=== PATIENT | male | born 1985 | race Caucasian/White ===

== ENCOUNTER 2019-03-29 08:50 | Outpatient (REF) | payer BC, SELFPAY ==
[2019-03-29 12:36] LABS: HCT 45.4 % (40.0-50.0); HGB 15.7 g/dL (13.5-17.5); Mean Corp. HGB Concentration 34.6 g/dL (32.0-36.0); Mean Corpuscular Volume 92.7 fL (80-95); Mean Platelet Volume 11.1 fL (8.0-11.0); Platelet Count 175 x1000/uL (130-400); RBC Distribution Width 12.3 % (11.8-14.1); White Blood Cell Count 3.71 k/cumm (4.4-10.8)
[2019-03-29 12:50] LABS: ALT 36 U/L (16-63); AST 20 U/L (15-37); Albumin 4.2 g/dL (3.4-5.0); Alkaline Phosphatase 59 U/L (46-116); Anion Gap 9.9 mmol/L (3-11); BUN 17 mg/dL (7-18); Bilirubin, Total 1.1 mg/dL (0.2-1.0); CO2 28.1 mmol/L (21.0-32.0); CREATININE 1.18 mg/dL (0.70-1.30); Calcium 9.1 mg/dL (8.5-10.1); Chloride 106 mmol/L (98-107); Glucose 102 mg/dL (70-100); Potassium 4.4 mmol/L (3.5-5.1); Sodium 144 mmol/L (136-145); Total Protein 7.3 g/dL (6.4-8.2)
[2019-04-01 11:33] LABS: Hepatitis B Surface Ag Negative (NEGAT)
[2019-04-01 11:39] LABS: HBs Antibody, Quant 175.2 mIU/mL; Hepatitis B Surface Ab Positive
[2019-04-01 11:55] LABS: Hep A Total Ab w Rflx IgM Negative (NEGAT)
[2019-04-01 12:00] LABS: Hepatitis C Ab w Rflx HCV PCR Negative (NEGAT)
== END 2019-03-29 09:10 ==
LOC: NCHCN 08:50
PROVIDERS: Visit Provider Nurse Practitioner Family
DX: R10.11 Right upper quadrant pain (principal); Z11.59 Encounter for screening for other viral diseases
CPT/HCPCS: 80053; 85027; 86706; 86709; 86803; 87340

== ENCOUNTER 2019-04-08 01:50 | Outpatient (CLI) | payer BC, SELFPAY ==
--- NOTE | 2019-04-08 07:00 | DI.US_ITS ---
EXAM: US ABDOMEN CLINICAL HISTORY: RUQ ABD PAIN, R10.11,RUQ ABD MASS, R19.01 TECHNIQUE: Ultrasound performed using standard protocol. FINDINGS: The aorta is unremarkable as visualized. The inferior vena cava is unremarkable as visualized. The l iver is normal in size. No hepatic mass is seen. There is hepatopetal flow through the portal vein. No gallstones are present. There is no sludge or pericholecystic fluid. The gallbladder wall is a t the upper limits of normal in size. There is a negative sonographic Luis's sign. Common duct is within normal limits at 2.7 mm. The pancreas, spleen, and kidneys are unremarkable. No free fluid is seen in the upper abdomen. IMPRESSION: Upper limits of normal gallbladder wall thickness. Otherwise negative examination.
== END 2019-04-08 02:10 ==
PROVIDERS: PCP Nurse Practitioner Family; Visit Provider Nurse Practitioner Family
DX: R10.11 Right upper quadrant pain (principal); R19.01 Right upper quadrant abdominal swelling, mass and lump; K82.8 Other specified diseases of gallbladder
CPT/HCPCS: 76700

== ENCOUNTER 2020-09-07 11:03 | Outpatient (CLI) | payer MEDICAID, SELFPAY ==
--- NOTE | 2020-09-07 10:10 | DI.RAD_ITS ---
EXAM: XR FOOT LT COMPLETE CLINICAL HISTORY: LT ANKLE JOINT PAIN, M25.572. TECHNIQUE: 2D digital imaging was performed. COMPARISON: No exams were available for comparison FINDINGS: There is no evidence of fracture nor diastasis of the Lisfranc joint. Benign-appearing sclerotic den sity is noted in the lateral aspect of the proximal phalanx of the great toe. Mild hallux valgus. D orsal talar beak. No inferior calcaneal spur. IMPRESSION: DATA REPOSITORY: RADIATION DOSE DELIVERED:
--- NOTE | 2020-09-07 10:10 | DI.RAD_ITS ---
EXAM: XR ANKLE LT COMPLETE CLINICAL HISTORY: LT ANKLE JOINT PAIN, M25.572. TECHNIQUE: 2D digital imaging was performed. COMPARISON: CR LEFT ANKLE COMPLETE from 02/23/2017 FINDINGS: There is mild soft tissue swelling laterally. There is no evidence of fracture or widening of the mo rtise. Talar dome appears unremarkable. Dorsal talar beak is noted which is probably the attachment site of the anterior capsule of the ankle joint no evidence of tarsal coalition. Benign bone island is noted in the tibial plafond, unchanged. IMPRESSION: No ankle fracture evident. No significant change from 2017. DATA REPOSITORY: RADIATION DOSE DELIVERED:
== END 2020-09-07 11:23 ==
PROVIDERS: PCP Nurse Practitioner Family; Visit Provider Acupuncturist
DX: M25.572 Pain in left ankle and joints of left foot (principal); M20.12 Hallux valgus (acquired), left foot; M79.89 Other specified soft tissue disorders
CPT/HCPCS: 73610; 73630

== ENCOUNTER 2020-09-13 09:09 | Emergency (ER) | payer MEDICAID, SELFPAY ==
[2020-09-13 09:14] VITALS: BP 158/84; PULSE 84; RESP 16; TEMP 37.1; O2SAT 100
--- NOTE | 2020-09-13 09:23 | ED.GENADUL_ITS ---
Discharge Plan Disposition Patient Disposition: HOME Condition: Good Discharge Details Clinical Impression: Gout, Abnormal transaminases Primary Care Provider: Gideon Montes ED Provider: Miriam Fernandez Home Meds and New Rx's Prescriptions: New prednisone 10 mg tablet 10 mg PO DAILY Qty: 16 RF: 0 Continued Ibuprofen [Ibuprofen Ib] 200 MG Tablet 800 mg PO PRN PRNRF: 0 Discharge Instructions Instructions: Prednisone (By mouth), Gout (ED) Additional Instructions: Your history, exam and labs are most patient with gout flare. Encouragement water intake. Please try to avoid alcohol no red in the fatty foods. Attached is information on gout and prevention of gout. You have elevated liver enzymes, is likely associated with alcohol intake. You need to have these rechecked by your primary care. Please call Monday to schedule follow-up appointment with your primary care in the next 1 to 2 weeks. If you develop spreading redness, increased pain, fever/chills or other new/worsening symptoms to seek care urgently once again. Referrals: Gideon Montes, CERTIFIED VEHICLE FIRE INVESTIGATOR [Primary Care Provider] - Discharge Data Discharge Date/Time-TO BE ENTERED AT DEPARTURE: 09/13/20 10:44 Medical Decision Making Patient is a pleasant 35-year-old gentleman presenting today with chief complaint of left ankle pain. Patient reports that he has had difficulty with flares of ankle pain for the past several years. Reports that this flare began approximately 8 days ago. Reports he was seen in urgent care at which time he was diagnosed with ankle sprain. Patient did undergo imaging of the ankle foot which was unchanged from previous in 2017. Patient denies any recent trauma. Denies any fevers or chills. States the pain is initially quite severe in the foot but his radiated more proximally and is now mainly in the ankle. The pain is not keeping him awake at night. He has been using Tylenol ibuprofen. Has been using crutches for the past week. Has been resting, icing, elevating. On exam, patient appears nontoxic. His vital signs are stable. He is noted to be hypertensive with blood pressure 158/84. I will have him discuss this further with primary care. Exam the left lower extremity is significant for swelling fairly diffusely about the ankle and into the proximal foot. The ankle is warm. Not hot. Mild pinkness, particular on the medial aspect of the ankle. No break in the skin. This is not spread elsewhere. He has 2+ distal pulses. Brisk capillary refill. Sensation is intact. The patient is a has atraumatic onset of this discomfort, I find it less likely to be sprain. More likely, this could be gout. Patient is a laureen, potential Lyme disease. Does not appear septic at this point. Patient does have ability to move the ankle. I do not suspect an infected joint at this time. Plan for baseline labs. Discussed this plan with the patient who is in agreement. Labs reviewed. Normal white count. Uric acid is elevated at 7.6. BMP significant for transaminitis. AST 39, ALT 84, alk phos 159. Patient does report drinking alcohol regularly, Likely contributing to presumed gout flare as well as the transaminitis. Discussed his findings with the patient. He will continue to elevate, use compression. We will continue with crutches to help with discomfort. We will begin the patient on prednisone. Patient states NSAIDs classically upset his stomach. Patient will be placed on a prednisone taper. Strict return precautions were discussed. Advise follow-up with primary care for reevaluation in 1 week. All his questions and concerns were addressed and he is in agreement this plan. Patient I also discussed dietary changes for about the transaminitis as well as gout. HPI General Mode of arrival: ambulatory (crutches) . Date/Time Provider Initiated Documentation: 09/13/20 09:10 . Limitations to Documentation: no limitations . Information obtained by: patient and RN notes reviewed . History of Present Illness 35 year old M presents to the emergency department with the chief c omplaint of left foot/ankle pain, described as moderate, with intensity rated at 6. Quality is described as aching, and is localized to the left and lower extremity. Patient started experiencing this day(s) (8) and it has been constant. Immobilization improves symptom(s), Movement worsens symptoms . Patient notes no other symptoms.; denies fever/chills, nausea/vomiting and rash. Patient did receive the following treatments prior to arrival, NSAID Related Data Home Medications Medication Instructions Recorded Confirmed Ibuprofen [Ibuprofen Ib] 800 mg PO PRN PRN 02/23/17 09/13/20 prednisone 10 mg PO DAILY #16 tab 09/13/20 Previous Rx's Medication Instructions Recorded prednisone 10 mg PO DAILY #16 tab 09/13/20 Allergies Allergy/AdvReac Type Severity Reaction Status Date / Time No Known Allergies Allergy Unverified 09/13/20 09:22 General Stated Complaint: Orthopedic TITA: 4 Review of Systems Constitutional Constitutional: Reports as per HPI, Denies chills, Denies fever(s), Denies headache(s) and Denies weakness ENT Ears, Nose, Mouth, and Throat: Denies headache(s) Cardiovascular Cardiovascular: Reports as per HPI Respiratory Respiratory: Reports as per HPI and Denies cough Musculoskeletal Musculoskeletal: Reports as per HPI and Denies tingling Integumentary/Breasts Skin/Breast: Reports as per HPI, Denies rash and Denies wounds Neurologic Neurologic: Reports as per HPI, Denies headache(s), Denies tingling, Denies paresthesias and Denies weakness [facility] Social History Smoking risk assessment performed?: No Alcohol Intake: current Alcohol Intake frequency: 0-2 drinks per day Drug use: Never Do you feel safe at home: Yes Do you feel safe in your relationship?: Yes Exam Const General: cooperative, healthy appearing, comfortable, no acute distress, well developed and well groomed Nutritional Appearance: average body habitus and well nourished Orientation: alert and awake Resp Effort & Inspection: normal respiratory effort, able to speak in complete sentences and no respiratory distress Cardio Rate: regular rate Rhythm: regular rhythm Skin General skin exam: erythema (ankle, particularly medially, is pink ) Neuro General: patient alert and patient awake Cognition: normal cognition Speech: speech normal Gait: gait abnormal (ambulating with crutches) Motor: muscle tone normal throughout Sensory Exam: no sensory deficits noted Extrem Left lower extremity: normal capillary refill, knee Details: normal to inspection, lower leg Details: normal to inspection, ankle Details: tenderness (diffuse pain), swelling Details: diffusely and warmth Location: anteriorly, laterally and medially; not posteriorly; ROM abnormal (limited with both plantar flexion and dorsiflexion) and foot Details: normal capillary refill, toes with normal ROM, vascular exam Details: dorsalis pedis pulse present, posterior tibial pulse present and normal capillary refill and motor-sensory exam Details: light-touch normal; no tenderness, no unusual warmth, no ecchymosis, no crepitus and no puncture wound Psych Appearance: grossly normal and well kempt Mental Status: mental status grossly normal Speech and Movement: speech and movement normal Course Vital Signs Vital signs: Vital Signs Temperature 37.1 C 09/13/20 09:14 Pulse 84 09/13/20 09:14 Respiratory Rate 16 09/13/20 09:14 Blood Pressure 158/84 H 09/13/20 09:14 Pulse Oximetry 100 09/13/20 09:14 Temperature 37.1 C 09/13/20 09:14 Temperature Source Temporal Artery Scan 09/13/20 09:14 Pulse 84 09/13/20 09:14 Respiratory Rate 16 09/13/20 09:14 Respiratory Effort Non-Labored 09/13/20 09:20 Blood Pressure 158/84 H 09/13/20 09:14 Blood Pressure Position Sitting 09/13/20 09:14 Pulse Oximetry 100 09/13/20 09:14 Oxygen Delivery Method Room Air 09/13/20 09:14 Oxygen Flow Rate 0 09/13/20 09:14 Pain Level 6 09/13/20 09:14
[2020-09-13 10:03] LABS: Abs Immature Grans 0.02 10^3/uL (0.0-0.06); Absolute Basophil Count 0.02 10^3/uL (0.0-0.2); Absolute Eosinophil Count 0.12 10^3/uL (0.0-0.7); Absolute Lymphocyte Count 1.29 10^3/uL (1.2-3.4); Absolute Monocyte Count 0.75 10^3/uL (0.1-0.8); Absolute Neutrophil Count 4.39 10^3/uL (1.2-6.7); Basophils % 0.3; Eosinophils % 1.8; HCT 39.8 % (40.0-50.0); HGB 13.5 g/dL (13.5-17.5); Immature Grans % 0.3; Lymphocytes % 19.6; MCH 31.5 pg (27.0-33.0); MCHC 33.9 % (32.0-36.0); MCV 92.8 fL (80-95); MPV 9.7 fL (8.0-11.0); Monocytes % 11.4; Neutrophils % 66.6; Nucleated RBC 0 %; Platelet Count 224 10^3/uL (130-400); RBC 4.29 10^6/uL (4.36-5.78); RDW 11.7 % (11.8-14.1); RDW-SD 39.6 fL; WBC 6.59 10^3/uL (4.4-10.8)
[2020-09-13 10:11] LABS: ALT 84 U/L (16-63); AST 39 U/L (15-37); Albumin 3.4 g/dL (3.4-5.0); Alkaline Phosphatase 159 U/L (46-116); Anion Gap 5.7 mmol/L (3-11); BUN 12 mg/dL (7-18); Bilirubin, Total 0.8 mg/dL (0.2-1.0); CO2 29.3 mmol/L (21.0-32.0); CREATININE 1.1 mg/dL (0.70-1.30); Calcium 8.7 mg/dL (8.5-10.1); Chloride 104 mmol/L (98-107); Glucose 98 mg/dL (74-106); Potassium 4.2 mmol/L (3.5-5.1); Sodium 139 mmol/L (136-145); Total Protein 7.5 g/dL (6.4-8.2); Uric Acid 7.6 mg/dL (3.5-7.2)
[2020-09-13] MEDS: predniSONE 20 MG TAB 40 MG PO (10:37)
[2020-09-14 11:54] LABS: Lyme Ab w Rflx to Lyme Confirm Negative (Negative)
[2020-09-15 06:01] LABS: Anaplasma phagocytophilum Negative (Negative); B. miyamotoi PCR Negative (Negative); Babesia divergens/MO-1 Negative (Negative); Babesia duncani Negative (Negative); Babesia microti Negative (Negative); Ehrlichia chaffeensis Negative (Negative); Ehrlichia ewingii/canis Negative (Negative); Ehrlichia muris eauclairensis Negative (Negative)
== END 2020-09-13 10:44 | disposition home or self-care (01) ==
PROVIDERS: Emergency Provider Physician Assistant; PCP Nurse Practitioner Family
DX: M10.072 Idiopathic gout, left ankle and foot (principal)
CPT/HCPCS: 36415; 80053; 87798; 99283; 84550; 85025; 86618; J7512

== ENCOUNTER 2020-09-18 15:11 | Outpatient (REF) | payer MEDICAID, SELFPAY ==
[2020-09-18 16:00] LABS: ESR 38 mm//hr (0-15)
[2020-09-18 16:06] LABS: C-Reactive Protein 1.71 mg/dL (0.0-0.3)
[2020-09-21 08:47] LABS: Cyclic Citrullinated Peptide <2.5 U/mL (<5.0)
[2020-09-21 14:54] LABS: ANA Interpretation Negative (Negative)
[2020-09-21 15:04] LABS: IgA 254 mg/dL (85-499); Interpretation (See Note); Tissue Transglutaminase IgA <1.2 U/mL (<4.0)
[2020-09-21 16:21] LABS: HLA-B27 Result Negative
== END 2020-09-18 15:12 | disposition home or self-care (01) ==
LOC: NCHCN 15:11
PROVIDERS: PCP Nurse Practitioner Family; Visit Provider Family Medicine
DX: M25.562 Pain in left knee (principal); M25.572 Pain in left ankle and joints of left foot
CPT/HCPCS: 82784; 83516; 85652; 86200; 86812; 86038; 86140

== ENCOUNTER 2021-04-09 09:30 | Outpatient (REF) | payer MEDICAID, SELFPAY ==
[2021-04-09 14:30] LABS: ALT 45 U/L (16-63); AST 26 U/L (15-37); Albumin 4.1 g/dL (3.4-5.0); Alkaline Phosphatase 67 U/L (46-116); Anion Gap 6.1 mmol/L (3-11); BUN 14 mg/dL (7-18); Bilirubin, Total 0.8 mg/dL (0.2-1.0); CO2 29.9 mmol/L (21.0-32.0); CREATININE 1.1 mg/dL (0.70-1.30); Calculated LDL 111 mg/dL (<100); Chloride 106 mmol/L (98-107); Cholesterol 176 mg/dL (<200); Glucose 99 mg/dL (74-106); HDL Cholesterol 49 mg/dL (40-60); Potassium 4.5 mmol/L (3.5-5.1); Sodium 142 mmol/L (136-145); Total Protein 7.1 g/dL (6.4-8.2); Triglyceride 84 mg/dL (<150)
== END 2021-04-09 09:31 | disposition home or self-care (01) ==
LOC: NCHCN 09:30
PROVIDERS: PCP Nurse Practitioner Family; Visit Provider Physician Assistant
DX: R79.89 Other specified abnormal findings of blood chemistry (principal); Z00.00 Encounter for general adult medical examination without abnormal findings
CPT/HCPCS: 80053; 80061

== ENCOUNTER 2021-11-05 16:00 | Outpatient (REF) | payer BC, MEDICAID, SELFPAY ==
[2021-11-05 15:30] LABS: Abs Immature Grans 0.02 10^3/uL (0.0-0.06); Absolute Basophil Count 0.03 10^3/uL (0.0-0.2); Absolute Eosinophil Count 0.18 10^3/uL (0.0-0.7); Absolute Lymphocyte Count 1.25 10^3/uL (1.2-3.4); Absolute Monocyte Count 0.56 10^3/uL (0.1-0.8); Absolute Neutrophil Count 3.97 10^3/uL (1.2-6.7); Basophils % 0.5; HCT 45.3 % (40.0-50.0); HGB 14.6 g/dL (13.5-17.5); Immature Grans % 0.3; Lymphocytes % 20.8; MCH 30.4 pg (27.0-33.0); MCHC 32.2 % (32.0-36.0); MCV 94 fL (80-95); MPV 11.1 fL (8.0-11.0); Monocytes % 9.3; Neutrophils % 66.1; Platelet Count 241 10^3/uL (130-400); RDW 11.8 % (11.8-14.1); RDW-SD 41.3 fL; WBC 6.01 10^3/uL (4.4-10.8)
[2021-11-05 15:33] LABS: ESR 20 mm/hr (0-15)
[2021-11-05 16:31] LABS: ALT 78 U/L (16-63); AST 35 U/L (15-37); Alkaline Phosphatase 119 U/L (46-116); Anion Gap 10.3 mmol/L (3-11); BUN 10 mg/dL (7-18); Bilirubin, Total 0.9 mg/dL (0.2-1.0); C-Reactive Protein 4.82 mg/dL (0.0-0.3); CO2 29.7 mmol/L (21.0-32.0); CREATININE 1.2 mg/dL (0.70-1.30); Calcium 9.6 mg/dL (8.5-10.1); Chloride 105 mmol/L (98-107); Glucose 98 mg/dL (74-106); Potassium 4.3 mmol/L (3.5-5.1); Sodium 145 mmol/L (136-145); Total Protein 7.6 g/dL (6.4-8.2)
[2021-11-05 21:55] LABS: Rheumatoid Factor <8.6 IU/mL (<12.0)
[2021-11-08 00:47] LABS: Anaplasma phagocytophilum Negative (Negative); B. miyamotoi PCR Negative (Negative); Babesia divergens/MO-1 Negative (Negative); Babesia duncani Negative (Negative); Babesia microti Negative (Negative); Ehrlichia chaffeensis Negative (Negative); Ehrlichia ewingii/canis Negative (Negative); Ehrlichia muris eauclairensis Negative (Negative)
[2021-11-08 10:31] LABS: Lyme Ab w Rflx to Lyme Confirm Negative (Negative)
[2021-11-09 14:27] LABS: ANA Interpretation Negative (Negative)
[2021-11-10 10:26] LABS: Syphilis Serology (RPR) Negative (Negative)
== END 2021-11-05 16:01 | disposition home or self-care (01) ==
LOC: LBN 16:00
PROVIDERS: PCP Nurse Practitioner Family; Visit Provider Nurse Practitioner Family
DX: M13.88 Other specified arthritis, other site (principal); R79.89 Other specified abnormal findings of blood chemistry
CPT/HCPCS: 80053; 85652; 87798; 84443; 85025; 86038; 86140; 86431; 86592; 86618

== ENCOUNTER 2023-09-25 15:24 | Outpatient (CLI) | payer MEDICAID, SELFPAY ==
--- NOTE | 2023-09-25 08:15 | DI.RAD_ITS ---
Exam(s) XR KNEE LT 4V AP,LAT,LARISA,PAT EXAM: XR KNEE LT 4V AP,LAT,LARISA,PAT CLINICAL HISTORY: left knee pain. TECHNIQUE: 2D digital imaging was performed of the left knee. Four images were obtained. Merchant, AP, lateral and PA tunnel views were obtained. COMPARISON: No exams were available for comparison FINDINGS: BONES: No acute fracture is present. No bony destructive lesion is seen. JOINTS: The knee is normally aligned. There is a small joint effusion. No loose body. SOFT TISSUE: Normal. IMPRESSION: Small joint effusion. DATA REPOSITORY: RADIATION DOSE DELIVERED:
== END 2023-09-25 15:25 | disposition home or self-care (01) ==
LOC: DIORS 15:24
PROVIDERS: PCP Physician Assistant; Visit Provider Student in an Organized Health Care Education/Training Program
DX: M25.562 Pain in left knee (principal)
CPT/HCPCS: 73564

== ENCOUNTER → 2023-10-10 02:28 | Outpatient (CLI) | payer MEDICAID, SELFPAY ==
--- NOTE | 2023-10-10 07:15 | DI.MRI_ITS ---
Exam(s) MR LOWER JOINT LT WO EXAM: MR LOWER JOINT LT WO CLINICAL HISTORY: lt knee pain, tear medial meniscus lt knee,s83.242a. TECHNIQUE: Multiplanar multisequence MRI was performed. COMPARISON: CR XR KNEE LT 4V AP,LAT,LARISA,PAT from 09/25/2023 FINDINGS: BONES: There is no fracture or contusion pattern. JOINTS: A moderate-sized joint effusion is present. Articular cartilage: Patellofemoral joint: Articular cartilage is unremarkable. Medial femoral tibial joint: Articular cartilage is unremarkable. Lateral femoral tibial joint: Articular cartilage is unremarkable. TENDONS: Extensor mechanism: Unremarkable. Medial retinaculum: Unremarkable. Lateral retinaculum: Unremarkable. Popliteus: Unremarkable. MUSCLES: Unremarkable. MENISCI: The medial meniscus is unremarkable. The lateral meniscus is unremarkable. SOFT TISSUES: Small Ventura's cyst. LIGAMENTS: Anterior Cruciate: Unremarkable. Posterior Cruciate: Unremarkable. Medial Collateral:Unremarkable. Lateral Collateral: Unremarkable. IMPRESSION: Joint effusion and small Ventura cyst. No evidence of meniscal tear or ligament tear. DATA REPOSITORY:
== END ==
PROVIDERS: PCP Physician Assistant; Visit Provider Student in an Organized Health Care Education/Training Program
DX: M25.462 Effusion, left knee (principal)
CPT/HCPCS: 73721

== ENCOUNTER → 2023-11-10 11:55 | Outpatient (CLI) | payer MEDICAID, SELFPAY ==
--- NOTE | 2023-11-10 12:16 | DI.RAD_ITS ---
Exam(s) XR HAND RT COMPLETE EXAM: XR HAND RT COMPLETE CLINICAL HISTORY: LOCALIZED SWELLING FINGER RT HAND, R22.31, ? TROPHACEOUS GOUT. TECHNIQUE: 2D digital imaging was performed. Three views. COMPARISON: No exams were available for comparison FINDINGS: BONES: No acute fracture is present. No bony destructive lesion is seen. JOINTS: No dislocation present. No significant degenerative changes. SOFT TISSUE: Swelling around distal interphalangeal joint of the index and middle fingers. No foreig n body or abnormal gas collection. No soft tissue calcifications. IMPRESSION: Soft tissue swelling DIP joints of index and middle fingers. DATA REPOSITORY: RADIATION DOSE DELIVERED:
== END ==
PROVIDERS: PCP Physician Assistant; Visit Provider Physician Assistant Medical
DX: R22.31 Localized swelling, mass and lump, right upper limb (principal)
CPT/HCPCS: 73130

== ENCOUNTER 2023-11-10 12:32 | Outpatient (REF) | payer MEDICAID, SELFPAY ==
[2023-11-10 14:28] LABS: Abs Immature Grans 0.01 10^3/uL (0.0-0.06); Absolute Basophil Count 0.04 10^3/uL (0.0-0.2); Absolute Eosinophil Count 0.17 10^3/uL (0.0-0.7); Absolute Lymphocyte Count 1.38 10^3/uL (1.2-3.4); Absolute Monocyte Count 0.65 10^3/uL (0.1-0.8); Absolute Neutrophil Count 4.95 10^3/uL (1.2-6.7); Basophils % 0.6 %; Eosinophils % 2.4 %; HGB 15.1 g/dL (13.5-17.5); Immature Grans % 0.1 %; Lymphocytes % 19.2 %; MCH 31.7 pg (27.0-33.0); MCHC 34.3 % (32.0-36.0); MCV 92 fL (80-95); MPV 11.2 fL (8.0-11.0); Neutrophils % 68.7 %; Platelet Count 201 10^3/uL (130-400); RBC 4.76 10^6/uL (4.36-5.78); RDW-SD 41.1 fL
[2023-11-10 14:51] LABS: ALT 59 U/L (16-63); AST 34 U/L (15-37); Albumin 4.1 g/dL (3.4-5.0); Alkaline Phosphatase 87 U/L (46-116); Anion Gap 8.3 mmol/L (3-11); BUN 13 mg/dL (7-18); Bilirubin, Total 0.9 mg/dL (0.2-1.0); CO2 29.7 mmol/L (21.0-32.0); Calcium 9.2 mg/dL (8.5-10.1); Chloride 106 mmol/L (98-107); Glucose 99 mg/dL (74-106); Potassium 4.4 mmol/L (3.5-5.1); Sodium 144 mmol/L (136-145); Total Protein 7.3 g/dL (6.4-8.2); Uric Acid 10.7 mg/dL (3.5-7.2)
== END 2023-11-10 12:33 | disposition home or self-care (01) ==
LOC: LBN 12:32
PROVIDERS: PCP Physician Assistant; Visit Provider Physician Assistant Medical
DX: R22.31 Localized swelling, mass and lump, right upper limb (principal)
CPT/HCPCS: 80053; 84550; 85025

== ENCOUNTER 2025-05-06 08:37 | Emergency (ER) | payer SELFPAY ==
[2025-05-06] VITALS (14 sets, daily range): BP systolic 136–207; BP diastolic 85–107; PULSE 26–66; RESP 14–30; O2SAT 90–100
--- NOTE | 2025-05-06 08:30 | RT.EKG_ITS ---
APPROVED REPORT Exam: Resting ECG Reason for Exam: Chest Pain Patient Location: E HR:57 bpm ECG Measurements Heart Rate 57 AXIS DE 60 P -24 QRSd 86 QRS 80 QT 415 T 76 QTc 409 Conclusion Sinus bradycardia...rate< 60 Atrial premature complex...SV complex w/ short R-R interval Abnrm T, consider ischemia, anterolateral lds...T <-0.20mV, I aVL V2-V6 ST elev, probable normal early repol pattern...ST elevation, age<55 Hyperacute T waves in septal leads No STEMI
--- NOTE | 2025-05-06 08:51 | ED.GENADUL_ITS ---
Discharge Plan Disposition Patient Disposition: Transfer-Acute Inpatient Care Specific Acute Inpt Facility: [facility] Discharge Details Clinical Impression: Chest pain Primary Care Provider: Mc Araujo ED Provider: Jaspal Hsu Home Meds and New Rx's Prescriptions: No Action ketoconazole 2 % shampoo 1 applic topical ONCE Ibuprofen [Ibuprofen Ib] 200 MG tablet 800 mg PO PRN PRN HPI General Date/Time Provider Initiated Documentation: 05/06/25 08:46 . HPI Narrative: MDM/Narrative: 40-year-old male with no known significant past medical history, presents for evaluation of acute left-sided chest pain radiating to left arm, and jaw ap proximately 45 minutes ago, unable to describe the characteristic but describes it as severe in intensity. Also notes associated nausea and diaphoresis. Denies any known family history of early onset stroke or heart attack, denies any other new or concerning symptoms. EKG notable for hyperacute T waves, no other criteria to meet STEMI noted on EKG, however given patient's classic presentation will treat with 324 mg of aspirin, nitroglycerin and serial EKGs due to high concern for ACS. Will also consider pneumothorax, pneumonia, GI upset, less likely dissection PE given lack of risk factors. ED course: 0850 Initially evaluated patient upon arrival emergency room, aspirin nitroglycerin, morphine and Zofran ordered, called for portable chest x-ray, will reassess to see if nitroglycerin has impact on patient's chest pain. 092 case discussed with [facility] cardiology who has reviewed EKGs and patient's clinical history5 They do not recommend starting thrombolytics/heparin at this time would await biomarkers CTA imaging and serial EKGs. Do recommend starting nitroglycerin drip at 10 mics per minute, to reassess patient's chest pain, if no improvement after 15 minutes may cancel the drip. Given high concern for ACS, the [facility] team was mobilized, patient will be transferred to the landing zone at [facility] under the care of Dr. duenas (cardiology). Clinical impression: Chest pain Disposition: Transfer to [facility] HPI: 40-year-old male with no known significant past medical history, presents for evaluation of acute left-sided chest pain radiating to left arm, and jaw approximately 45 minutes ago, unable to describe the characteristic but describes it as severe in intensity. Also notes associated nausea and diaphoresis. Denies any known family history of early onset stroke or heart attack, denies any other new or concerning symptoms. ROS: Negative besides as mentioned above Exam: Gen: A&O NAD, in severe painful distress HEENT: NCAT, EOMI, not icteric. External ears normal. No rhinorrhea. Moist mucous membranes. Neck: Supple, full range of motion, no observable masses, No meningeal sign. Lungs: No Respiratory distress. CV: RRR, no edema. Abdomen: Soft, nondistended, No rebound tenderness. MSK: No joint swelling, no redness. Skin: No rashes, petechiae, lesions. Normal color per patient. Neuro: Normal Gait, Grossly intact. Psych: Appropriate for situation. EKG #1 @ 0825 Rhythm: NSR Rate: 57 [place]: Normal axis Intervals: Normal intervals Other findings: Hyperacute T waves diffusely, T wave inversion in aVL, V1, there is ST elevation not meeting STEMI criteria present in lead III, V3, V4, V5, without reciprocal ST changes EKG 2# @ 0909 Rhythm: normal sinus rhythm with ventricular premature complex Rate: 68 bpm Intervals: Normal intervals Other findings: Wavy baseline however there appears to be increasing ST elevation in leads II, III, aVF, with increasing amplitude of T waves in the lateral leads concerning for MAR Labs: Laboratory Tests Range/Units 05/06/25 09:11 WBC (4.4-10.8) 10^3/uL 8.15 RBC (4.36-5.78) 10^6/uL 5.24 Hgb (13.5-17.5) g/dL 16.4 Hct (40.0-50.0) % 47.5 MCV (80-95) fL 91 MCH (27.0-33.0) pg 31.3 MCHC (32.0-36.0) % 34.5 RDW (11.8-14.1) % 12.0 Plt Count (130-400) 10^3/uL 230 MPV (8.0-11.0) fL 10.3 Immature Gran % % 0.4 Neutrophils % % 76.0 Lymphocytes % % 12.6 Monocytes % % 9.0 Eosinophils % % 1.5 Basophils % % 0.5 Nucleated RBC % (0.0-0.3) % 0.0 Absolute Neutrophils (1.2-6.7) 10^3/uL 6.20 Absolute Lymphocytes (1.2-3.4) 10^3/uL 1.03 L Absolute Monocytes (0.1-0.8) 10^3/uL 0.73 Absolute Eosinophils (0.0-0.7) 10^3/uL 0.12 Absolute Basophils (0.0-0.2) 10^3/uL 0.04 VBG Lactate (<or=2.0) mmol/L 2.4 H* Radiology: Chest x-ray AP: No acute disease as read by me CTA chest abdomen pelvis: No acute aortic dissection, no pneumothorax, no pericardial effusion as read by me Related Data Home Medications ?Medication ?Instructions ?Recorded ?Confirmed Ibuprofen [Ibuprofen Ib] 800 mg PO PRN PRN 02/23/17 0 10/23/23 ketoconazole 2 % shampoo 1 applic topical ONCE 10/23/23 Allergies Allergy/AdvReac Type Severity Reaction Status Date / Time No Known Allergies Allergy Unverified 10/23/23 09:16 General TITA: 4 PFSH All Active Problems (Updated 05/06/25 @ 09:42 by Jaspal Hsu MD) Chest pain (Acute) Ventura's cyst of knee (Acute) Left knee pain (Acute) Elevated LFTs (Acute) Inflammatory arthritis (Acute) Pityriasis versicolor (Acute) Onychomycosis (Acute) Back pain (Acute) Sore throat (Acute) Influenza A (Acute) Acute sinusitis (Acute) Gout (Chronic) Abnormal transaminases (Acute) Social History Smoking risk assessment performed?: No Alcohol Intake: current Alcohol Intake frequency: 0-2 drinks per day Drug use: Never Do you feel safe at home: Yes Do you feel safe in your relationship?: Yes
--- NOTE | 2025-05-06 09:00 | DI.CT_ITS ---
Exam(s) CT THORAX ABD/PEL CTA EXAM: CT THORAX ABD/PEL CTA CLINICAL HISTORY: cocnern for dissection. TECHNIQUE: Imaging Protocol: Axial CT angiography was performed with multi- slice acquisition and multi-planar and/or 3D reconstructions. Lung Computer Aided Detection (CAD) was utilized. CONTRAST MATERIAL: Intravenous: Omnipaque 350 contrast volume:100 mL Oral: No COMPARISON: No exams were available for comparison FINDINGS: CHEST: Tracheobronchial tree: Patent where visualized. There is no evidence of bronchiectasis. Pulmonary parenchyma: No consolidation or dominant measurable mass. No architectural distortion. Pulmonary Arteries: No evidence of filling defect to suggest pulmonary emboli. Mediastinum and Antonette: No dominant adenopathy or fluid collection. The esophagus is unremarkable. Visualized thyroid: There is a 4 mm well-circumscribed hypodense nodule in the left thyroid gland. No follow-up is recommended. Pleura: No effusion or pneumothorax. Heart: The heart is not dilated. No coronary artery calcifications are seen. No pericardial effusion. Aorta: Thoracic aorta non-dilated. There is no evidence of dissection. Soft Tissues: Unremarkable. Bones: Within normal limits for the patient's age. ABDOMEN AND PELVIS: Abdomen: Celiac axis/mesenteric arteries: No evidence of occlusion or significant stenosis. Renal Arteries: No evidence of occlusion or significant stenosis. There is a single renal artery perfusing each kidney. Aorta: No evidence of occlusion or significant stenosis. No aneurysm or dissection. Pelvis: Iliac Arteries: No evidence of occlusion or significant stenosis. Common Femoral Arteries: No evidence of occlusion or significant stenosis. ABDOMEN: Liver: Normal density. No measurable mass. Portal, superior mesenteric and splenic veins: Unremarkable. Gallbladder and Biliary Tract: No radiodense calculus or dilation. Pancreas: The body and tail of the pancreas are enlarged and mildly heterogeneous. There is fluid seen surrounding the body and tail of the pancreas. The findings are most suggestive of acute pancreatitis. No focal fluid collection is seen to suggest an abscess. Spleen: Normal. Adrenals: No masses seen. Kidneys: Normal size, contour and axis. No radiodense stones or obstructive uropathy. No masses seen. Bowel: No obstruction or bowel wall thickening. Appendix is unremarkable. Peritoneal Cavity: There is a small amount of free fluid in the cul-de-sac. No free air. Lymph Nodes: Within normal limits. Bones: Within normal limits for the patient's age. Soft Tissues: Unremarkable. PELVIS: Bladder: Symmetric distention, no gross wall thickening. Reproductive Organs: Unremarkable as visualized. Lymph Nodes: Within normal limits. Bones: Within normal limits for the patient's age. There are subchondral sclerotic changes seen in the head of the right femur consistent with avascular necrosis. Mild areas of increased density are also seen in the head of the left femur suspicious for early avascular necrosis. IMPRESSION: 1. There is no evidence of pulmonary embolism, thoracic aortic aneurysm or dissection. 2. Findings consistent with acute pancreatitis. There is an area of decreased attenuation within the pancreas which may reflect necrotizing pancreatitis. No focal fluid collection is seen to suggest an abscess. 3. Small amount of free fluid in the pelvis. 4. No evidence of cholelithiasis or biliary ductal dilatation. Ultrasound may be considered for further evaluation. 5. Avascular necrosis of the right femur and probably changes related to early avascular necrosis of the left femur. 6. There is no acute pulmonary process. 7. There is no evidence of an abdominal aortic aneurysm or dissection. RADIATION DOSE DELIVERED: 688.74mGy.cm Total DLP DATA REPOSITORY: All CT scans at this facility are submitted to the National Radiology Data Registry (NRDR) Dose Index Registry (DIR) with the [employer] (ACR). RADIATION OPTIMIZATION: All CT scans at this facility use at least one of these dose optimization techniques: automated exposure control; mA and/or kV adjustment per patient size (includes targeted exams where dose is matched to clinical indication); or iterative reconstruction.
--- NOTE | 2025-05-06 09:00 | DI.RAD_ITS ---
Exam(s) XR PORTABLE CHEST AP EXAM: XR PORTABLE CHEST AP CLINICAL HISTORY: chest pain TECHNIQUE: 2D digital imaging was performed of the chest. One image was obtained. An AP view was obtained. COMPARISON: No exams were available for comparison FINDINGS: MEDIASTINUM: Normal. HEART: Normal. PULMONARY VASCULATURE: Normal. LUNGS: Clear. PLEURAL SPACE: No pleural effusion or pneumothorax. BONE:Within normal limits for the patient's age. OTHER FINDINGS:Normal. IMPRESSION: No acute pulmonary findings. DATA REPOSITORY: RADIATION DOSE DELIVERED:
--- NOTE | 2025-05-06 09:00 | RT.EKG_ITS ---
APPROVED REPORT Exam: Resting ECG Reason for Exam: Chest Pain Patient Location: E HR:68 bpm ECG Measurements Heart Rate 68 AXIS LA [id number] P [id number] QRSd 84 QRS 81 QT 408 T 77 QTc 434 Conclusion Atrial fibrillation...? atrial activity Ventricular premature complex...V complex w/ short R-R interval Inferior infarct, acute...ST>0.10mV, T upright, II III aVF Borderline ST elevation, anterior leads...ST >0.15mV in V1-V4
[2025-05-06] MEDS: Aspirin 81 MG CHEW 324 MG CH (09:04)
[2025-05-06] MEDS: nitroGLYcerin 0.4 MG TAB SL (09:04)
[2025-05-06] MEDS: MORPHine 10 MG/ML VIAL 6 MG IVP ×2 (09:13→09:48)
[2025-05-06] MEDS: Ondansetron 4 MG/2 ML VIAL IVP (09:13)
[2025-05-06 09:21] LABS: Abs Immature Grans 0.03 10^3/uL (0.0-0.06); HCT 47.5 % (40.0-50.0); HGB 16.4 g/dL (13.5-17.5); Immature Grans % 0.4 %; MCH 31.3 pg (27.0-33.0); MCHC 34.5 % (32.0-36.0); MCV 91 fL (80-95); MPV 10.3 fL (8.0-11.0); Platelet Count 230 10^3/uL (130-400); RBC 5.24 10^6/uL (4.36-5.78); RDW 12.0 % (11.8-14.1); RDW-SD 40.1 fL; WBC 8.15 10^3/uL (4.4-10.8)
[2025-05-06] MEDS: Normal Saline - Diluent 50 ML VIAL IJ (09:24)
[2025-05-06] MEDS: Omnipaque 350 MG/ML 500 ML BTL-Imaging package IJ (09:24)
[2025-05-06] MEDS: Normal Saline Flush 10 ML SYR IVP (09:24)
[2025-05-06 09:43] LABS: INR 1.0 (0.9-1.1); Magnesium 1.9 mg/dL (1.6-2.6); PTT Activated 20.2 sec (20.6-30.2); Prothrombin Time 10.4 sec (9.1-11.1)
[2025-05-06 09:45] LABS: ALT 25 U/L (10-49); AST 30 U/L (<34); Albumin 4.6 g/dL (3.4-5.0); Alkaline Phosphatase 78 U/L (46-116); Anion Gap 11.4 mmol/L (3-11); BUN 12 mg/dL (9-23); Bilirubin, Total 1.10 mg/dL (0.2-1.2); CO2 25.6 mmol/L (20.0-31.0); Calcium 9.6 mg/dL (8.3-10.6); Chloride 105 mmol/L (98-107); Glucose 156 mg/dL (74-106); Potassium 5.0 mmol/L (3.5-5.1); Sodium 142 mmol/L (136-145); Total Protein 7.5 g/dL (5.7-8.2)
[2025-05-06] MEDS: nitroGLYcerin in D5W 50 MG/250 ML BTL IV (09:45)
[2025-05-06 09:47] LABS: Troponin I < 3 ng/L (<54)
[2025-05-06] MEDS: Pantoprazole 40 MG VIAL IVP (10:04)
[2025-05-06 10:06] LABS: Lipase 2721 U/L (<53)
== END 2025-05-06 10:23 | disposition short-term general hospital (02) ==
LOC: ER 09:57
PROVIDERS: Emergency Provider General Practice; PCP Physician Assistant
DX: R07.9 Chest pain, unspecified (principal); R11.0 Nausea; R61 Generalized hyperhidrosis; R94.31 Abnormal electrocardiogram [ECG] [EKG]
CPT/HCPCS: 99285 ×2; 96375; 96376; 71275; 80053; 83690; 93005; 96365; 71045; 74174; 83605; 83735; 83880; 84484; 85025; 85610; 85730; 93010; J2270; J2305; J2405; J2470

== ENCOUNTER 2025-05-06 20:36 | Inpatient (IN) | payer SELFPAY ==
[2025-05-06 20:11] VITALS: BP 160/89; PULSE 58; RESP 20; TEMP 37; O2SAT 99
[2025-05-06 20:13] VITALS: BP 160/89; PULSE 58; RESP 20; TEMP 37; O2SAT 99
--- NOTE | 2025-05-06 20:17 | HPE_ITS ---
Date of service: 05/06/25 Time of Service: 20:17 Assessment and Plan Assessment and plan (1) Necrotizing pancreatitis: Start date: 05/06/25 Status: Acute Assessment and plan: This is a 40-year-old gentleman with acute onset of epigastric abdominal pain and elevated lipase with ultrasound of the right upper quadrant of abdomen revealing cholelithiasis which was not evident on CT of the abdomen and pelvis initially. He does drink alcohol daily but has never had a problem with pancreatitis. The differential diagnosis includes gallstone pancreatitis is mo st likely but also alcoholic pancreatitis could be considered. He is not on any chronic medications that for ibuprofen for arthritis but he thinks most of his pain is around the joints rather than in the joints and was told by rheumatology that this was post-COVID inflammatory process. He does carry the diagnosis of gout which he thinks is not accurate. He will be admitted for pain control, IV hydration with n.p.o. status and surgical consultation. His gallbladder will most likely need to be removed eventually but not urgently. He was counseled that he could decrease his alcohol intake. He is a full code. (2) Chest pain: Start date: 05/06/25 Status: Acute Assessment and plan: Patient was thought to have a possible STEMI but this was ruled out at [facility] and most likely secondary to his acute necrotizing pancreatitis. His risk factors are low but he should follow-up with screening for hyperlipidemia when he is not acutely ill and continue monitoring his blood pressure which was acutely elevated with his pain but not chronically elevated at his primary care visits. (3) Daily consumption of alcohol: Status: Chronic Assessment and plan: Patient advised decreasing this would be advantageous though it does not appear to be a problem with his general health at this time. He has no illicit drug use and does not smoke tobacco. (4) Cholelithiasis: Status: Chronic Assessment and plan: New finding by report from [facility] transfer but ultrasound report should be obtained for surgeon to review. This will not be repeated. (5) HTN (hypertension): Start date: 05/06/25 Status: Acute Assessment and plan: This appears to be reactive and can be followed up long-term as an outpatient. For now this will be treated by managing his acute pain. The patient is physically active, not overweight and exercises daily with his job. (6) Gout: Status: Chronic Assessment and plan: Patient thinks his diagnosis is an accurate but was told by rheumatology that this was most likely a post-COVID inflammatory process and the patient thinks this is mostly an inflammation around the joint rather than in the joint. He was on allopurinol in the past without improvement. CT of the abdomen pelvis did reveal avascular necrosis of the hips which should be further investigated as an outpatient. (7) Avascular necrosis of bone of hip: Status: Chronic Assessment and plan: This was an acute finding most likely a chronic problem. This should be followed up by his PCP especially with continued lower extremity discomfort. History of Present Illness History of Present Illness Chief Complaint: Acute onset epigastric pain after breakfast morning of admission. 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 He had associated nausea and vomiting with diaphoresis. He was evaluated in the ED and found to have an elevated lipase with abnormal CT of the abdomen revealing probable necrotizing pancreatitis with some free fluid in the pelvis and coincidental findings of avascular necrosis of the hips of which the patient had no complaints. He also had ST segment elevations and was diagnosed as a STEMI and transferred to [facility] from the ED for treatment of this problem. He was transferred via helicopter. At [facility] he did not meet the criteria for acute STEMI but was noted to have cholelithiasis by ultrasound the abdomen not seen on CT of the abdomen and pelvis at [facility]. The patient was not aware of this finding. The patient was transferred back to [facility] for treatment of his acute pancreatitis and for surgical follow-up and consultation for his cholelithiasis. His lipase was over 2000 and this will be trended after conversation with the on-call surgeon. He was still having extreme pain when awake but was responding to morphine with no long-acting effects. He did not respond to Dilaudid or fentanyl. He will be admitted for pain control, n.p.o. status and IV hydration with surgical follow-up. Patient's risk factors for pancreatitis include daily alcohol intake of 4-5 beers after work though he has never had problems with this amount of drinking in the past. With the acute onset, this appears more likely associated with his cholelithiasis. Long-term decrease alcohol intake would be helpful with his severe episode. He is otherwise generally healthy, thin with adequate exercise and activity. He has no other alcohol intake. The patient is a full code. Review of Systems Narrative: 13 point review of systems otherwise unrevealing or stable. PFSH All Active Problems (Updated 05/07/25 @ 07:01 by Jai Pool) Avascular necrosis of bone of hip (Chronic) HTN (hypertension) (Acute) Cholelithiasis (Chronic) Daily consumption of alcohol (Chronic) Necrotizing pancreatitis (Acute) Pancreatitis, acute (Acute) Chest pain (Acute) Ventura's cyst of knee (Acute) Left knee pain (Acute) Elevated LFTs (Acute) Inflammatory arthritis (Acute) Pityriasis versicolor (Acute) Onychomycosis (Acute) Back pain (Acute) Sore throat (Acute) Influenza A (Acute) Acute sinusitis (Acute) Gout (Chronic) Abnormal transaminases (Acute) Social History Smoking/Tobacco Use Status: Never Smoking risk assessment performed?: Yes Alcohol Intake: current Alcohol Intake frequency: 0-2 drinks per day Drug use: Never Housing: house Do you feel safe at home: Yes Do you feel safe in your relationship?: Yes Meds Allergies and Home Medications Allergies Allergy/AdvReac Type Severity Reaction Status Date / Time No Known Allergies Allergy Unverified 10/23/23 09:16 Home Medications ?Medication ?Instructions ?Recorded ?Confirmed ?Type Ibuprofen [Ibuprofen Ib] 800 mg PO PRN PRN 02/23/17 1 07/07/24 History ketoconazole 2 % shampoo 1 applic topical ONCE 05/07/25 History Exam Narrative Exam Narrative: General: Patient appears to be in severe pain when awake but was sleeping when I approached. He awakened easily. He is alert and oriented x 3 and in moderate to severe distress from his epigastric pain. HEENT: Normocephalic, eyes with pupils equal and reactive to light symmetric ally, extraocular movement intact and sclera anicteric. Oropharynx with dry mucosa, halitosis and fair dentition. Neck: Supple without JVD. Back: Normal posture without CVA tenderness. Lungs: Fair aeration clear to auscultation percussion. Heart: Regular rate and rhythm with no murmurs gallops appreciated. Abdomen: Scaphoid contour, guarding and firm especially in the epigastrium with no appreciable palpable hepatosplenomegaly and no Luis sign. Bowel sounds are decreased but present in all quadrants. No rebound. Genitalia/rectal: Exam deferred. Extremities: Without clubbing, cyanosis or pitting edema. Patient moves lower extremities well with no evidence of discomfort in the hips but full exam was not performed. Skin: Normal color, warm and dry. Neuro: Cranial nerves II through XII gross intact, no focalized motor deficits and no tremor. Psych: Flattened affect with pain, normal mood. No abnormal thought processes. Remote and recent memory intact. Results Imaging Abdominal ultrasound report/results: report reviewed (Verbal report from [facility] providers cholelithiasis without cholecystitis.) Additional studies: POCUS echocardiogram normal at [facility] reported in transfer summary. Imaging Studies: EXAM: CT THORAX ABD/PEL CTA CLINICAL HISTORY: cocnern for dissection. TECHNIQUE: Imaging Protocol: Axial CT angiography was performed with multi- slice acquisition and multi-planar and/or 3D reconstructions. Lung Computer Aided Detection (CAD) was utilized. CONTRAST MATERIAL: Intravenous: Omnipaque 350 contrast volume:100 mL Oral: No COMPARISON: No exams were available for comparison FINDINGS: CHEST: Tracheobronchial tree: Patent where visualized. There is no evidence of bronchiectasis. Pulmonary parenchyma: No consolidation or dominant measurable mass. No architectural distortion. Pulmonary Arteries: No evidence of filling defect to suggest pulmonary emboli. Mediastinum and Antonette: No dominant adenopathy or fluid collection. The esophagus is unremarkable. Visualized thyroid: There is a 4 mm well-circumscribed hypodense nodule in the left thyroid gland. No follow-up is recommended. Pleura: No effusion or pneumothorax. Heart: The heart is not dilated. No coronary artery calcifications are seen. No pericardial effusion. Aorta: Thoracic aorta non-dilated. There is no evidence of dissection. Soft Tissues: Unremarkable. Bones: Within normal limits for the patient's age. ABDOMEN AND PELVIS: Abdomen: Celiac axis/mesenteric arteries: No evidence of occlusion or significant stenosis. Renal Arteries: No evidence of occlusion or significant stenosis. There is a single renal artery perfusing each kidney. Aorta: No evidence of occlusion or significant stenosis. No aneurysm or dissection. Pelvis: Iliac Arteries: No evidence of occlusion or significant stenosis. Common Femoral Arteries: No evidence of occlusion or significant stenosis. ABDOMEN: Liver: Normal density. No measurable mass. Portal, superior mesenteric and splenic veins: Unremarkable. Gallbladder and Biliary Tract: No radiodense calculus or dilation. Pancreas: The body and tail of the pancreas are enlarged and mildly heterogeneous. There is fluid seen surrounding the body and tail of the pancreas. The findings are most suggestive of acute pancreatitis. No focal fluid collection is seen to suggest an abscess. Spleen: Normal. Adrenals: No masses seen. Kidneys: Normal size, contour and axis. No radiodense stones or obstructive uropathy. No masses seen. Bowel: No obstruction or bowel wall thickening. Appendix is unremarkable. Peritoneal Cavity: There is a small amount of free fluid in the cul-de-sac. No free air. Lymph Nodes: Within normal limits. Bones: Within normal limits for the patient's age. Soft Tissues: Unremarkable. PELVIS: Bladder: Symmetric distention, no gross wall thickening. Reproductive Organs: Unremarkable as visualized. Lymph Nodes: Within normal limits. Bones: Within normal limits for the patient's age. There are subchondral sclerotic changes seen in the head of the right femur consistent with avascular necrosis. Mild areas of increased density are also seen in the head of the left femur suspicious for early avascular necrosis. IMPRESSION: 1. There is no evidence of pulmonary embolism, thoracic aortic aneurysm or dissection. 2. Findings consistent with acute pancreatitis. There is an area of decreased attenuation within the pancreas which may reflect necrotizing pancreatitis. No focal fluid collection is seen to suggest an abscess. 3. Small amount of free fluid in the pelvis. 4. No evidence of cholelithiasis or biliary ductal dilatation. Ultrasound may be considered for further evaluation. 5. Avascular necrosis of the right femur and probably changes related to early avascular necrosis of the left femur. 6. There is no acute pulmonary process. 7. There is no evidence of an abdominal aortic aneurysm or dissection. Last Vital Signs Temp 37 C 05/06/25 20:11 Pulse 58 L 05/06/25 20:11 Resp 20 05/06/25 20:11 BP 160/89 H 05/06/25 20:11 Pulse Ox 99 05/06/25 20:11 VTE Prohylaxis Risk Level: Low Risk Contraindications: None Prophylaxis: Pharmacologic and Mechanical Time Spent Time spent with Patient: >75 minutes Time was spent: preparing to see the patient(eg.review tests), obtaining and/or reviewing separately otained hiistory, ordering medications,tests, procedures, referring, communicating with other health healthcare recruiter, indepentently interpreting results, counseling the patient and care coordination
[2025-05-06] MEDS: Normal Saline 1,000 ML 125 ML IV (22:54)
[2025-05-06] MEDS: MORPHine 2 MG/ML SYR 4 MG IVP ×2 (23:12→23:33)
[2025-05-06 23:53] LABS: COVID-19 PCR Negative (Negative); RSV PCR Negative (Negative)
[2025-05-07] VITALS (7 sets, daily range): BP systolic 130–162; BP diastolic 79–101; PULSE 69–98; RESP 16–19; TEMP 36.2–37.7; O2SAT 94–99
--- NOTE | 2025-05-07 03:49 | W.PC.ACHO ---
Registration Status: ADM IN Primary Language: Preferred Language: Hungarian Most Recent Vital Signs Temperature 37 C 05/07/25 03:31 Temperature Source Temporal Artery Scan 05/07/25 03:31 Pulse 69 05/07/25 03:31 Pulse Rhythm Regular 05/06/25 20:13 Respiratory Rate 16 05/07/25 03:31 Respiratory Effort Normal 05/06/25 20:13 Respiratory Depth Normal 05/06/25 20:13 Blood Pressure 154/89 H 05/07/25 03:31 Blood Pressure Mean 110 05/07/25 03:31 Pulse Oximetry 99 05/07/25 03:31 Oxygen Delivery Method Room Air 05/07/25 03:31 Oxygen Flow Rate 0 05/07/25 03:31 Pain Level 6 05/06/25 23:33 Comment lft side abd. pain 05/06/25 20:13 Allergies No Known Allergies Allergy (Unverified 10/23/23 09:16) Active Medications Generic Name Dose Route Start Last Admin Trade Name Freq PRN Reason Stop Dose Admin Sodium Chloride 1,000 mls @ 125 mls/hr 05/06/25 20:45 05/06/25 22:54 Saline 1000ml Bag IV 125 mls/hr INFUSION CELESTE Administration Morphine Sulfate 4 mg 05/06/25 23:12 05/06/25 23:33 Morphine 2 Mg/Ml Syr IVP 4 mg Q1H PRN Administration IV IV Catheter Type [Left Peripheral IV Antecubital] Diet Orders Category Date Time Status Nothing Per Oral [DIET] Nutrition 05/06/25 20:39 Active Diagnostics 05/07/25 05/06/25 Range/Units 05:35 22:45 WBC Pending RBC Pending Hgb Pending Hct Pending MCV Pending MCH Pending MCHC Pending RDW Pending Plt Count Pending MPV Pending Sodium Pending Potassium Pending Chloride Pending Carbon Dioxide Pending Anion Gap Pending BUN Pending Creatinine Pending Est GFR (CKD-EPI 2020) Pending Glucose Pending Calcium Pending Magnesium Pending Total Bilirubin Pending AST Pending ALT Pending Alkaline Phosphatase Pending Total Protein Pending Albumin Pending Lipase Pending COVID-19 Source Nasopharynx SARS-CoV-2 (PCR) Negative (Negative) Influenza Type A (PCR) Negative (Negative) Influenza Type B (PCR) Negative (Negative) RSV (PCR) Negative (Negative) Intake and Output - 24 Hour Total 05/06/25 thru 05/07/25 00:10 Intake Total 20 Balance 20 Weight 90.718 kg Intake: IV 20 Other: Comment unmeasured unwitnessed Falls Risk Assessment History of Falls No History 05/06/25 20:13 Contributing Factors No Factors 05/06/25 20:13 Ambulatory Aids Independent 05/06/25 20:13 Tubes/Lines None 05/06/25 20:13 Gait Evaluation No gait disturbance 05/06/25 20:13 Cognition No cognitive impairment 05/06/25 20:13 Fall Total Score 0 05/06/25 20:13 Level of Risk Standard/Low Risk 05/06/25 20:13 Problems (Last Updated 10/23/23 @ 09:56 by JIM Arrieta) HTN (hypertension) (Chronic) Cholelithiasis (Chronic) Daily consumption of alcohol (Chronic) Necrotizing pancreatitis (Acute) Chest pain (Acute) Gout (Chronic) Attestation Statement: By documenting the first initial, last name, and credentials of the reporting nurse below, both parties acknowledge that all relevant information regarding the patient handoff has been communicated, and that all questions have been addressed to ensure continuity and safety of care. Additional Patient Information/Comments: Pt admit to med/surg rm 206, [place] [facility] [place] Dx necrotizing pancreatitis. Hypertensive upon admit, Dr. veloz. Report Received From: [facility] EMT, gave report @ 2014
[2025-05-07] MEDS: Acetaminophen 325 MG TAB 650 MG PO (06:34)
[2025-05-07] MEDS: Milk of Magnesia 30 ML CUP PO (06:34)
[2025-05-07] MEDS: MORPHine 2 MG/ML SYR 4 MG IVP ×2 (06:34→11:12)
[2025-05-07 06:45] LABS: HCT 45.5 % (40.0-50.0); HGB 15.6 g/dL (13.5-17.5); MCH 32.7 pg (27.0-33.0); MCHC 34.3 % (32.0-36.0); MCV 95 fL (80-95); MPV 10.4 fL (8.0-11.0); Platelet Count 222 10^3/uL (130-400); RBC 4.77 10^6/uL (4.36-5.78); RDW 12.4 % (11.8-14.1); RDW-SD 44.0 fL; WBC 12.86 10^3/uL (4.4-10.8)
--- NOTE | 2025-05-07 06:59 | W.SURGCON ---
Date of service: 05/07/25 Time of Service: 06:59 [facility] All Active Problems (Updated 05/07/25 @ 06:59 by Jai Pool) HTN (hypertension) (Acute) Cholelithiasis (Chronic) Daily consumption of alcohol (Chronic) Necrotizing pancreatitis (Acute) Pancreatitis, acute (Acute) Chest pain (Acute) Ventura's cyst of knee (Acute) Left knee pain (Acute) Elevated LFTs (Acute) Inflammatory arthritis (Acute) Pityriasis versicolor (Acute) Onychomycosis (Acute) Back pain (Acute) Sore throat (Acute) Influenza A (Acute) Acute sinusitis (Acute) Gout (Chronic) Abnormal transaminases (Acute) Social History Smoking/Tobacco Use Status: Never Smoking risk assessment performed?: Yes Alcohol Intake: current Alcohol Intake frequency: 0-2 drinks per day Drug use: Never Housing: house Do you feel safe at home: Yes Do you feel safe in your relationship?: Yes Results Last Vital Signs Temp 37 C 05/07/25 03:31 Pulse 69 05/07/25 03:31 Resp 16 05/07/25 03:31 BP 154/89 H 05/07/25 03:31 Pulse Ox 99 05/07/25 03:31 Labs 05/07/25 06:00 Labs: Laboratory Results - last 24 hr 05/06/25 05/07/25 22:45 06:00 WBC 12.86 H RBC 4.77 Hgb 15.6 Hct 45.5 MCV 95 D MCH 32.7 MCHC 34.3 RDW 12.4 Plt Count 222 MPV 10.4 COVID-19 Source Nasopharynx SARS-CoV-2 (PCR) Negative Influenza Type A (PCR) Negative Influenza Type B (PCR) Negative RSV (PCR) Negative
[2025-05-07 07:01] LABS: ALT 16 U/L (10-49); AST 18 U/L (<34); Albumin 3.8 g/dL (3.2-5.0); Alkaline Phosphatase 67 U/L (46-116); Anion Gap 4.5 mmol/L (3-11); BUN 12 mg/dL (9-23); Bilirubin, Total 1.30 mg/dL (0.2-1.2); CO2 28.5 mmol/L (20.0-31.0); Calcium 8.4 mg/dL (8.3-10.6); Chloride 108 mmol/L (98-107); Glucose 133 mg/dL (74-106); Lipase 642 U/L (<53); Potassium 4.2 mmol/L (3.5-5.1); Sodium 141 mmol/L (136-145); Total Protein 6.3 g/dL (5.7-8.2)
[2025-05-07 07:02] LABS: Magnesium 1.8 mg/dL (1.6-2.6)
[2025-05-07] MEDS: Normal Saline 1,000 ML 125 ML IV ×3 (07:22→23:19)
[2025-05-07] MEDS: Enoxaparin 40 MG/0.4 ML SYR SC (08:03)
[2025-05-07] MEDS: Normal Saline Flush 10 ML SYR IVP ×4 (08:03→20:46)
--- NOTE | 2025-05-07 09:36 | PDOC.CMIN ---
Date of service: 05/07/25 Time of Service: 09:36 Care Management Initial Assmt Initial Assessment Reason for Hospitalization: acute pancreatitis Functional Status/Living Situation Patient Presentation: Cesar presented to the ED yesterday morning with c/o chest pain. He was transferred to [facility], where he was ruled out for STEMI. He came back to [facility] with chief complaint of epigastric pain, elevated lipase. He was diagnosed with acute pancreatitis. Surgical consult was ordered, but no surgery needed at this time. Cesar was sitting up on the edge of the bed when CM met with him today. He was very pleasant, and stated that he was feeling a little loopy from some pain medication that he had just had. 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 Neither carries health insurance, although their kids are insured. With Cesar's permission, referral was sent to [facility] and he was also given the patient assistance packet. Town of Residence: [place] Resides with: Spouse (Kaylie and their 3 kids aged 15, 12 and 7) Significant Other/Family: Local (Jose Cavanaugh) Natural Supports: family Employment Status: Employed (self emplyed welder fabricator) Instrumental Activities of Daily Living (ADLs): Independent Advance Directives Advance Directives: Do you have an Advance Directive: N 11/30/15, 11:29 AD On File at [facility]: N 11/30/15, 11:29 Date Asked 05/06/25 05/06/25, 08:52 AD Date Reviewed COLST On File at [facility] COLST Date Scanned Code Status Resuscitation Status Full Code Portal Pt does not currently have a portal and education provided: Yes Insurance Coverage/Financial Issues Insurance: self pay Care Team Visit Care Team Role Provider Type Lorrie Karimi APRN MD [facility] STAFF PHYSICIAN Mc Araujo Primary Care Provider NON-[facility] STAFF PHYSICIAN Divine Arana MD Other Providers [facility] STAFF PHYSICIAN Jai Pool Admit Provider NON-[facility] STAFF PHYSICIAN Attending Provider Discharge Potential Discharge Needs: PCP F/U Appt Anticipated Barriers to Discharge: None Identified Patient/Family Education Needs: Review discharge instructions, discuss Ask Me Three Transportation: Private vehicle Plan: Anticipate that Cesar will discharge home with no new home care services once medically stable. He will f/u with his PCP and continue per his plan of care. Cesar will transport home in a private vehicle. CM will continue to follow. Social Determinants of Health Screening Social Determinants of health last assessed in clinic: 05/07/25 Will the Patient Participate in the Screening?: Yes Do you worry about having a steady place to live?: no Problems where you live: no known problems In the past 12 months, have you had to go without electric, gas, oil or water in your home?: no 1. Within the past 12 months, we worried whether our food would run out before we got money to buy more.: Don't know/refused 2. Within the past 12 months, the food we bought just didn't last and we didn't have money to get more.: Don't know/refused Has lack of transportation kept you from medical appointments or from doing things needed for daily living?: no Has anyone in your life made you feel unsafe or unsupported?: no How hard is it for you to pay for the very basics like food, housing, medical care, and heating? Would you say it is:: Not hard at all Do you want help finding or keeping work or a job?: I do not need or want help If for any reason you need help with day-to-day activities such as bathing, preparing meals, shopping, managing finances, etc., do you get the help you need?: I don?t need any help How often do you feel lonely or isolated from those around you?: Never Do you speak a language other than Maltese at home?: No Does the patient want assistance with any of the above?: No Comments: Kaylie is present PFSH All Active Problems (Updated 05/07/25 @ 13:11 by Lorrie Karimi APRN) Leukocytosis (Acute) Avascular necrosis of bone of hip (Chronic) HTN (hypertension) (Acute) Cholelithiasis (Chronic) Daily consumption of alcohol (Chronic) Necrotizing pancreatitis (Acute) Pancreatitis, acute (Acute) Chest pain (Acute) Ventura's cyst of knee (Acute) Left knee pain (Acute) Elevated LFTs (Acute) Inflammatory arthritis (Acute) Pityriasis versicolor (Acute) Onychomycosis (Acute) Back pain (Acute) Sore throat (Acute) Influenza A (Acute) Acute sinusitis (Acute) Gout (Chronic) Abnormal transaminases (Acute) Social History Smoking/Tobacco Use Status: Never Smoking risk assessment performed?: Yes Alcohol Intake: current Alcohol Intake frequency: 0-2 drinks per day Drug use: Never Housing: house Do you feel safe at home: Yes Do you feel safe in your relationship?: Yes
--- NOTE | 2025-05-07 09:37 | PGE_ITS ---
Date of Service Date of service: 05/07/25 Time of Service: 09:37 Assessment and Plan Assessment and plan (1) Necrotizing pancreatitis: Start date: 05/06/25 Status: Acute Assessment and plan: CT of the ABD and pelivis on 05/06 showing - enlarged and mildly heterogeneous body and tail of the pancreas ; fluid seen surrounding the body and tail of the pancreas.- findings are most suggestive of acute pancreatitis. Lipase 2721- trending down to 642 no further trending if the patient continue to clinically improve US RUQ - not stones no CBD dilation on report accessed for surgery - Official report requested and pending History of daily ETOH use -No previous pancreatitis. Considering surgical consultation if not improving Ongoing PRN antiemetic Lipids CMP in AM Increased pain management regimen as below . (2) Leukocytosis: Status: Acute Assessment and plan: New WBC 12.7 CBC in AM With signs of infection antibiotics should be considered Breathing restricted d/t pain -IS and increased in pain management meds- no on hydromorphone PRN (3) Chest pain: Start date: 05/06/25 Status: Acute Assessment and plan: Patient was thought to have a possible STEMI but this was ruled out at [facility] [place] and most likely secondary to his acute necrotizing pancreatitis. His risk factors are low but he should follow-up with screening for hyperlipidemia when he is not acutely ill and continue monitoring his blood pressure which was acutely elevate d with his pain but not chronically elevated at his primary care visits. (4) Daily consumption of alcohol: Status: Chronic Assessment and plan: Counseled re: decreasing intake VS stopping - in the setting of pancreatitis (5) Cholelithiasis: Status: Chronic Assessment and plan: New finding by report from [facility] transfer Still Attempting to get ultrasound report Surgical consultation - reconsider if cholelithiasis on report (6) HTN (hypertension): Start date: 05/06/25 Status: Acute Assessment and plan: no history of HTN but in the setting of severe pain - will continue to monitor and treat as per guidlines- for inpatient acute care hospitalization Outpatient f/u (7) Gout: Status: Chronic Assessment and plan: Patient reporting inaccuracy in diagnosis and was told by rheumatology that this was most likely a post-COVID inflammatory process and the patient thinks this is mostly an inflammation around the joint rather than in the joint. Allopurinol ordered in the past without improvement. Uric acid level (8) Avascular necrosis of bone of hip: Status: Chronic Assessment and plan: CT of the abdomen pelvis did reveal avascular necrosis .This was an incidental finding most likely a chronic problem; followed up by his PCP especially with continued lower extremity discomfort. discussed with Dr. Sanchez Subjective Subjective Patient reports: still having pain, tolerating liquids well, tolerating a regular diet, voiding w/o difficulty, no flatus, no bowel movement (last 05/06) and other (Restriction whenatking deep breath ); denies diarrhea, vomiting, shortness of breath or fever Exam Narrative Exam Narrative: 40 yo male patient - no acute distress , alert and oriented X4, no neurological deficit, S1, S2 regular, no murmur, clear upper lungs, decrease bases -increased abd pain when attempting deep inspiration , abd is non-ditended soft and tender to palpation - moves all 4 ext. skin on hands - is dark pink with good cap refill- reported as normal for the patient Objective Last Vital Signs Temp 37.2 C 05/07/25 08:16 Pulse 94 H 05/07/25 08:16 Resp 16 05/07/25 08:16 BP 162/84 H 05/07/25 08:16 Pulse Ox 99 05/07/25 08:16 Laboratory Results - last 24 hr 05/06/25 05/07/25 22:45 06:00 WBC 12.86 H RBC 4.77 Hgb 15.6 Hct 45.5 MCV 95 D MCH 32.7 MCHC 34.3 RDW 12.4 Plt Count 222 MPV 10.4 Sodium 141 Potassium 4.2 Chloride 108 H Carbon Dioxide 28.5 Anion Gap 4.5 BUN 12 Creatinine 1.02 Est GFR (CKD-EPI 2020) 80.83 Glucose 133 H Calcium 8.4 Magnesium 1.8 Total Bilirubin 1.30 H AST 18 ALT 16 Alkaline Phosphatase 67 Total Protein 6.3 Albumin 3.8 Lipase 642 H COVID-19 Source Nasopharynx SARS-CoV-2 (PCR) Negative Influenza Type A (PCR) Negative Influenza Type B (PCR) Negative RSV (PCR) Negative PAWSS Have you Been Recently Intoxicated or Drunk Within the Last 30 days?: No Have you Ever Experienced Previous Episodes of Alcohol Withdrawal?: No Have you ever Experienced Withdrawal Seizures?: No Have you ever Experienced Delirium Tremens(DT)s?: No Have you ever undergone Alcohol Rehabilitation Treatment (i.e, inpt ot outpatient treatment programs)?: No Have you ever Experienced Blackouts?: No Have you ever Combined Alcohol with other Downers within the last 90 days?: No Have you ever Combined Alcohol with any other Substance of Abuse during the last 90 days?: No Positive Blood Alcohol level on Presentation? [PCS.BAL]: No Evidence of Increased Autonomic Activity (i.e. HR>120, tremor, sweating, agitation, nausea)?: No Result: 0 VTE Prohylaxis Risk Level: Moderate/High Risk Contraindications: None and Medical contrainidcation Prophylaxis: Pharmacologic and Patient ambulatory Time Spent with Patient Time Spent with Patient: >50 minutes Time was spent: preparing to see the patient(eg.review tests), obtaining and/or reviewing separately otained hiistory, ordering medications,tests, procedures, referring, communicating with other health senior care specialist, indepentently interpreting results, counseling the patient, care coordination and other
[2025-05-07 10:10] LABS: Lab Add On Test DONE
[2025-05-07 10:23] LABS: C-Reactive Protein 8.33 mg/dL (<=0.50)
--- NOTE | 2025-05-07 13:13 | CHAPLAIN ---
Cesar was resting in bed when I visited, and talking with his nurse. He was uncomfortable with movement and when he laughed. I explained my role and offered support. Cesar said he's in touch with family and some were into visit earlier today.
[2025-05-07] MEDS: HYDROmorphone 2 MG/ML SYR 1 MG IVP ×2 (13:29→20:45)
[2025-05-07] MEDS: Pantoprazole 40 MG VIAL IVP (13:30)
[2025-05-07] MEDS: ACETAMINOPHEN 1,000 MG/100 ML BAG 400 MG IVPB (20:30)
[2025-05-07] MEDS: Mylanta Suspension 30 ML CUP PO (20:31)
[2025-05-08] VITALS (8 sets, daily range): BP systolic 122–155; BP diastolic 73–95; PULSE 84–104; RESP 16–19; TEMP 36.5–39.4; O2SAT 92–97
[2025-05-08] MEDS: ACETAMINOPHEN 1,000 MG/100 ML BAG 400 MG IVPB ×3 (03:28→23:22)
[2025-05-08] MEDS: HYDROmorphone 2 MG/ML SYR 1 MG IVP ×3 (03:28→17:11)
[2025-05-08] MEDS: Normal Saline Flush 10 ML SYR IVP ×5 (03:30→19:54)
[2025-05-08] MEDS: PIPERACILLIN/TAZO 3.375 GM in Normal Saline 50 ML IVPB ×4 (04:46→22:17)
[2025-05-08 04:59] LABS: HCT 39.0 % (40.0-50.0); HGB 13.1 g/dL (13.5-17.5); MCH 31.4 pg (27.0-33.0); MCHC 33.6 % (32.0-36.0); MCV 94 fL (80-95); MPV 10.2 fL (8.0-11.0); Platelet Count 178 10^3/uL (130-400); RBC 4.17 10^6/uL (4.36-5.78); RDW 12.4 % (11.8-14.1); RDW-SD 42.8 fL; WBC 13.23 10^3/uL (4.4-10.8)
[2025-05-08 05:12] LABS: Magnesium 1.7 mg/dL (1.6-2.6)
[2025-05-08 05:15] LABS: ALT 21 U/L (10-49); AST 31 U/L (<34); Albumin 3.3 g/dL (3.2-5.0); Alkaline Phosphatase 81 U/L (46-116); Anion Gap 4 mmol/L (3-11); BUN 12 mg/dL (9-23); Bilirubin, Total 3.20 mg/dL (0.2-1.2); CO2 24.0 mmol/L (20.0-31.0); Calcium 8.0 mg/dL (8.3-10.6); Chloride 108 mmol/L (98-107); Cholesterol 103 mg/dL (<200); Glucose 134 mg/dL (74-106); HDL Cholesterol 36 mg/dL (>40); Potassium 3.7 mmol/L (3.5-5.1); Sodium 136 mmol/L (136-145); Total Protein 5.7 g/dL (5.7-8.2)
[2025-05-08 05:31] LABS: Uric Acid 6.9 mg/dL (3.7-9.2)
[2025-05-08] MEDS: Normal Saline 1,000 ML 125 ML IV ×2 (08:19→17:12)
[2025-05-08] MEDS: Enoxaparin 40 MG/0.4 ML SYR SC (09:04)
[2025-05-08] MEDS: Pantoprazole 40 MG VIAL IVP (09:04)
--- NOTE | 2025-05-08 10:27 | PGE_ITS ---
Date of Service Date of service: 05/08/25 Time of Service: 10:28 Assessment and Plan Assessment and plan (1) Necrotizing pancreatitis: Start date: 05/06/25 Status: Acute Assessment and plan: CT of the ABD and pelvis on 05/06 showing - enlarged and mildly heterogeneous body and tail of the pancreas ; fluid seen surrounding the body and tail of the pancreas- findings are most suggestive of acute pancreatitis. Lipase 2721- trending down to 642 no further trending if the patient continue to clinically improve US RUQ - no stones no CBD dilation or gallbladder wall thickening , sludge , peripancreatic ascistes; trace perihepatic and perisplenic ascites on report -report printed out and in chart - reviewed with patient- filed in physical chart History of daily ETOH use -No previous pancreatitis. Considering surgical consultation if not improving Repeat imaging if clinically deteriorates Ongoing PRN antiemetic Lipids : Total cholesterol 103, LDL 52, Triglycerides 74 CMP in AM Increased pain management regimen as below . (2) Sepsis: Status: Acute Assessment and plan: In the setting of necrotizing pancreatitis as per CT with ongoing leukocytosis with WBC at 13 and new fever at 38.3 degree celcius , blood cultures are pending Lactate was 2.4 on 05/06 w/o leukocytosis 05/07 blood Cx negative but developed fever after collection 05/08/25-Blood cultures pending Zosyn IV Q6H PRN acetamninophen (3) Fever: Status: Acute (4) Leukocytosis: Status: Acute Assessment and plan: 05/07/25 WBC 12.7 trending up to 13.86 today Febrile overnight and piperacillin-tazobactam CBC in AM With signs of infection antibiotics should be considered Breathing restricted d/t pain -IS and increased in pain management meds- no on hydromorphone PRN (5) Chest pain: Start date: 05/06/25 Status: Acute Assessment and plan: Patient was thought to have a possible STEMI but this was ruled out at [facility] and most likely secondary to his acute necrotizing pancreatitis. His risk factors are low but he should follow-up with screening for hyperlipidemia when he is not acutely ill and continue monitoring his blood pressure which was acutely elevated with his pain but not chronically elevated at his primary care visits. (6) Daily consumption of alcohol: Status: Chronic Assessment and plan: Ongoin counseling re: decreasing intake VS stopping - in the setting of pancreatitis w/o gallstones No withdrawal in the past- last drink 05/05/25 -4-6 beers /day (7) Cholelithiasis: Status: Chronic Assessment and plan: None- No gallstones on US limited ABD report Surgical consultation if worsening clinically - (8) HTN (hypertension): Start date: 05/06/25 Status: Acute Assessment and plan: no history of HTN but in the setting of severe pain - improving with increased pain control -will continue to monitor and treat as per guidlines- for inpatient acute care hospitalization Outpatient f/u (9) Gout: Status: Chronic Assessment and plan: Patient reporting inaccuracy in diagnosis and was told by rheumatology that this was most likely a post-COVID inflammatory process and the patient thinks this is mostly an inflammation around the joint rather than in the joint. No further allopurinol Uric acid level -6.9 (10) Avascular necrosis of bone of hip: Status: Chronic Assessment and plan: CT of the abdomen pelvis did reveal avascular necrosis ; incidental finding most likely a chronic problem; followed up by his PCP discussed with Dr. Sanchez Subjective Subjective Patient reports: no new complaints, still having pain, tolerating liquids well, tolerating a regular diet, voiding w/o difficulty, no flatus, no bowel movement (last reported 05/06), fever and other (Able to take deep breaths with pain meds ); denies diarrhea, nausea, vomiting or shortness of breath Exam Narrative Exam Narrative: 40 yo male patient - no acute distress , alert and oriented X4, no neurological deficit, S1, S2 regular, no murmur, clear upper lungs,good airflow to bases with deep breathing decrease bases -increased abd pain when attempting deep inspiration , abd is non-distended soft and tender to palpation , + Luis's - moves all 4 ext. Objective Last Vital Signs Temp 36.7 C 05/08/25 07:48 Pulse 88 05/08/25 07:48 Resp 17 05/08/25 07:48 BP 155/73 H 05/08/25 07:48 Pulse Ox 96 05/08/25 07:48 Laboratory Results - last 24 hr 05/08/25 04:37 WBC 13.23 H RBC 4.17 L Hgb 13.1 L D Hct 39.0 L MCV 94 MCH 31.4 MCHC 33.6 RDW 12.4 Plt Count 178 MPV 10.2 Sodium 136 Potassium 3.7 Chloride 108 H Carbon Dioxide 24.0 Anion Gap 4 BUN 12 Creatinine 0.93 Est GFR (CKD-EPI 2020) 89.92 Glucose 134 H Uric Acid 6.9 Calcium 8.0 L Magnesium 1.7 Total Bilirubin 3.20 H AST 31 ALT 21 Alkaline Phosphatase 81 Total Protein 5.7 Albumin 3.3 Triglycerides 74 Total Cholesterol 103 LDL Cholesterol, Calc 52 HDL Cholesterol 36 L PAWSS Have you Been Recently Intoxicated or Drunk Within the Last 30 days?: No Have you Ever Experienced Previous Episodes of Alcohol Withdrawal?: No Have you ever Experienced Withdrawal Seizures?: No Have you ever Experienced Delirium Tremens(DT)s?: No Have you ever undergone Alcohol Rehabilitation Treatment (i.e, inpt ot outpatient treatment programs)?: No Have you ever Experienced Blackouts?: No Have you ever Combined Alcohol with other Downers within the last 90 days?: No Have you ever Combined Alcohol with any other Substance of Abuse during the last 90 days?: No Positive Blood Alcohol level on Presentation? [PCS.BAL]: No Evidence of Increased Autonomic Activity (i.e. HR>120, tremor, sweating, agitation, nausea)?: No Result: 0 VTE Prohylaxis Risk Level: Moderate/High Risk Contraindications: Active bleed/high bleed risk Prophylaxis: Pharmacologic Time Spent with Patient Time Spent with Patient: >50 minutes Time was spent: preparing to see the patient(eg.review tests), obtaining and/or reviewing separately otained hiistory, ordering medications,tests, procedures, referring, communicating with other health respiratory care program director, indepentently interpreting results, counseling the patient, care coordination and other
[2025-05-08 10:44] LABS: Lab Add On Test DONE
[2025-05-08 11:13] LABS: Procalcitonin 2.97 ng/mL
[2025-05-08 11:16] LABS: C-Reactive Protein 27.11 mg/dL (<=0.50)
--- NOTE | 2025-05-08 14:39 | NUR.NOTE ---
Access chart to reconcile EKG orders with EKG's in [facility] for the ED. Nursing Note:
[2025-05-09] VITALS (14 sets, daily range): BP systolic 129–150; BP diastolic 76–99; PULSE 84–92; RESP 15–16; TEMP 36.7–38.1; O2SAT 95–97
[2025-05-09] MEDS: Normal Saline 1,000 ML 125 ML IV (01:21)
[2025-05-09] MEDS: PIPERACILLIN/TAZO 3.375 GM in Normal Saline 50 ML IVPB ×2 (04:09→09:42)
[2025-05-09 07:03] LABS: HCT 33.6 % (40.0-50.0); HGB 11.5 g/dL (13.5-17.5); MCH 31.5 pg (27.0-33.0); MCHC 34.2 % (32.0-36.0); MCV 92 fL (80-95); MPV 10.4 fL (8.0-11.0); Platelet Count 138 10^3/uL (130-400); RBC 3.65 10^6/uL (4.36-5.78); RDW 11.9 % (11.8-14.1); RDW-SD 40.4 fL; WBC 8.62 10^3/uL (4.4-10.8)
[2025-05-09 07:21] LABS: Bilirubin, Direct 0.7 mg/dL (<=0.3)
[2025-05-09 07:28] LABS: ALT 16 U/L (10-49); AST 16 U/L (<34); Albumin 3.1 g/dL (3.2-5.0); Alkaline Phosphatase 66 U/L (46-116); Anion Gap 10.5 mmol/L (3-11); BUN 10 mg/dL (9-23); Bilirubin, Total 1.50 mg/dL (0.2-1.2); CO2 22.5 mmol/L (20.0-31.0); Calcium 7.7 mg/dL (8.3-10.6); Chloride 108 mmol/L (98-107); Glucose 98 mg/dL (74-106); Magnesium 1.9 mg/dL (1.6-2.6); Potassium 3.5 mmol/L (3.5-5.1); Sodium 141 mmol/L (136-145); Total Protein 5.4 g/dL (5.7-8.2)
[2025-05-09] MEDS: Pantoprazole 40 MG VIAL IVP (07:44)
[2025-05-09] MEDS: Enoxaparin 40 MG/0.4 ML SYR SC (07:44)
[2025-05-09] MEDS: Normal Saline Flush 10 ML SYR IVP (07:45)
--- NOTE | 2025-05-09 08:38 | PDOC.CMPRO ---
Date of service: 05/09/25 Time of Service: 08:38 Care Management Progress Note Discharge Potential Discharge Needs: PCP F/U Appt Anticipated Barriers to Discharge: None Identified Patient/Family Education Needs: Review discharge instructions, discuss Ask Me Three Transportation: Private vehicle Plan: Anticipate that Cesar will discharge home with no new home care services once medically stable. He will f/u with his PCP and continue per his plan of care. Cesar will transport home in a private vehicle. CM will continue to follow. Social Determinants of Health Screening Social Determinants of health last assessed in clinic: 05/07/25 Will the Patient Participate in the Screening?: Yes Do you worry about having a steady place to live?: no Problems where you live: no known problems In the past 12 months, have you had to go without electric, gas, oil or water in your home?: no Has lack of transportation kept you from medical appointments or from doing things needed for daily living?: no Has anyone in your life made you feel unsafe or unsupported?: no How hard is it for you to pay for the very basics like food, housing, medical care, and heating? Would you say it is:: Not hard at all Do you want help finding or keeping work or a job?: I do not need or want help If for any reason you need help with day-to-day activities such as bathing, preparing meals, shopping, managing finances, etc., do you get the help you need?: I don?t need any help How often do you feel lonely or isolated from those around you?: Never Do you speak a language other than Spanish at home?: No Does the patient want assistance with any of the above?: No Comments: Kaylie is present
[2025-05-09 09:05] LABS: Lipase 119 U/L (<53)
--- NOTE | 2025-05-09 10:19 | W.PM.PROGNOT ---
Date of Service Date of service: 05/09/25 Time of Service: 10:20 Assessment and Plan Assessment and plan (1) Necrotizing pancreatitis: Start date: 05/06/25 Status: Acute Assessment and plan: CT of the ABD and pelvis on 05/06 showing - enlarged and mildly heterogeneous body and tail of the pancreas ; fluid seen surrounding the body and tail of the pancreas- findings are most suggestive of acute pancreatitis. Lipase 2721- trending down to 642 no further trending if the patient continue to clinically improve US RUQ - no stones no CBD dilation or gallbladder wall thickening , sludge , peripancreatic ascistes; trace perihepatic and perisplenic ascites on report -report printed out and in chart - reviewed with patient- filed in physical chart History of daily ETOH use -No previous pancreatitis. Considering surgical consultation if not improving Repeat imaging if clinically deteriorates Ongoing PRN antiemetic Lipids : Total cholesterol 103, LDL 52, Triglycerides 74 CMP in AM Increased pain management regimen as below . (2) Sepsis: Status: Acute Assessment and plan: In the setting of necrotizing pancreatitis as per CT with ongoing leukocytosis with WBC at 13 and new fever at 38.3 degree celcius , blood cultures are pending Lactate was 2.4 on 05/06 w/o leukocytosis 05/07 blood Cx negative but developed fever after collection 05/08/25-Blood cultures pending Zosyn IV Q6H PRN acetamninophen (3) Fever: Status: Acute (4) Leukocytosis: Status: Acute Assessment and plan: 05/07/25 WBC 12.7 trending up to 13.86 today Febrile overnight and piperacillin-tazobactam CBC in AM With signs of infection antibiotics should be considered Breathing restricted d/t pain -IS and increased in pain management meds- no on hydromorphone PRN (5) Chest pain: Start date: 05/06/25 Status: Acute Assessment and plan: Patient was thought to have a possible STEMI but this was ruled out at [facility] [place] and most likely secondary to his acute necrotizing pancreatitis. His risk factors are low but he should follow-up with screening for hyperlipidemia when he is not acutely ill and continue monitoring his blood pressure which was acutely elevated with his pain but not chronically elevated at his primary care visits. (6) Daily consumption of alcohol: Status: Chronic Assessment and plan: Ongoin counseling re: decreasing intake VS stopping - in the setting of pancreatitis w/o gallstones No withdrawal in the past- last drink 05/05/25 -4-6 beers /day (7) Cholelithiasis: Status: Chronic Assessment and plan: None- No gallstones on US limited ABD report Surgical consultation if worsening clinically - (8) HTN (hypertension): Start date: 05/06/25 Status: Acute Assessment and plan: no history of HTN but in the setting of severe pain - improving with increased pain control -will continue to monitor and treat as per guidlines- for inpatient acute care hospitalization Outpatient f/u (9) Gout: Status: Chronic Assessment and plan: Patient reporting inaccuracy in diagnosis and was told by rheumatology that this was most likely a post-COVID inflammatory process and the patient thinks this is mostly an inflammation around the joint rather than in the joint. No further allopurinol Uric acid level -6.9 (10) Avascular necrosis of bone of hip: Status: Chronic Assessment and plan: CT of the abdomen pelvis did reveal avascular necrosis ; incidental finding most likely a chronic problem; followed up by his PCP discussed with Dr. Sanchez Objective Last Vital Signs Temp 38.1 C H 05/09/25 07:52 Pulse 87 05/09/25 07:09 Resp 16 05/09/25 07:09 BP 141/82 H 05/09/25 07:09 Pulse Ox 96 05/09/25 07:09 Laboratory Results - last 24 hr 05/08/25 05/08/25 05/09/25 04:37 15:37 06:16 WBC 8.62 RBC 3.65 L Hgb 11.5 L Hct 33.6 L MCV 92 MCH 31.5 MCHC 34.2 RDW 11.9 Plt Count 138 MPV 10.4 VBG Lactate 0.8 Sodium 141 Potassium 3.5 Chloride 108 H Carbon Dioxide 22.5 Anion Gap 10.5 BUN 10 Creatinine 0.93 Est GFR (CKD-EPI 2020) 89.92 Glucose 98 Calcium 7.7 L Magnesium 1.9 Total Bilirubin 1.50 H Conjugated Bilirubin 0.7 H AST 16 ALT 16 Alkaline Phosphatase 66 C-Reactive Protein 27.11 H Total Protein 5.4 L Albumin 3.1 L Lipase 119 H Procalcitonin 2.97 Add-On Test Request DONE PAWSS Have you Been Recently Intoxicated or Drunk Within the Last 30 days?: No Have you Ever Experienced Previous Episodes of Alcohol Withdrawal?: No Have you ever Experienced Withdrawal Seizures?: No Have you ever Experienced Delirium Tremens(DT)s?: No Have you ever undergone Alcohol Rehabilitation Treatment (i.e, inpt ot outpatient treatment programs)?: No Have you ever Experienced Blackouts?: No Have you ever Combined Alcohol with other Downers within the last 90 days?: No Have you ever Combined Alcohol with any other Substance of Abuse during the last 90 days?: No Positive Blood Alcohol level on Presentation? [PCS.BAL]: No Evidence of Increased Autonomic Activity (i.e. HR>120, tremor, sweating, agitation, nausea)?: No Result: 0
--- NOTE | 2025-05-09 10:53 | DSE_ITS ---
Date of service: 05/09/25 Time of Service: 10:54 DS: Diagnosis Discharge Diagnosis (1) Necrotizing pancreatitis: Status: Acute (2) Sepsis: Status: Acute (3) Fever: Status: Acute (4) Leukocytosis: Status: Acute (5) Chest pain: Status: Acute (6) Daily consumption of alcohol: Status: Chronic (7) Cholelithiasis: Status: Chronic (8) HTN (hypertension): Status: Acute (9) Gout: Status: Chronic (10) Avascular necrosis of bone of hip: Status: Chronic Discharge Plan Disposition Patient Disposition: Home Condition: Improving Discharge Details Reason For Visit: Necrotizing Pancreatitis, Cholelithiasis, Daily al Admit Date/Time: 05/06/25 20:36 Admit Provider: Jai Pool Attending Provider: Jai Pool Primary Care Provider: Mc Araujo Hospital Course Hospital Course: This 40-year-old male patient with no significant past medical history except daily alcohol intake presented to the ED on 05/06/25 for evaluation of acute left-sided chest pain radiating to left arm, and jaw, nausea and diaphoresis. The patient received ASA 324 and SL nitroglycerin. Work-up was concerning for EKG notable for hyperacute T waves, with no other criteria to meet STEMI but d/t presentation the ED provider discussed the case with [facility] cardiology with recommendation for nitro drip and transfer via [facility] to [facility]. [facility] work-up was negative for ACS/STEMI as per echocardiogram but pointed to necrotizing pancreatitis as per CT imaging. US RUQ showed no stones or cholelithiasis, no biliary dilation but peripancreatic and new perisplenic fluid w/o abscess when compared to CT ABD and pelvis completed at [facility] before transfer, lactate was also 2.4. The patient was transferred back to [facility] on the same day for ongoing treatment and management to the hospitalist service. Lipase was elevated at 2721 with repeat at 642. The patient developed leukocytosis, febrile illness, with elevated bilirubin, land piperacillin/tazobactam added to IVF and IV pain management with concerns for infection and cholangitis. Lipid panel was unremarkable. The patient clinically improved and was able to tolerate oral intake and pain subsided. IV Calcium replacement given. The patient was counselled regarding alcohol cessation, oil recovery operator offered and refused; recommendation to follow-up with PCP. The patient will be discharged home on a short course of oral antibiotics. Blood cultures were negative at the time of discharge. Follow-up with PCP within 7 to 10 days of discharge, the patient will need repeat imaging 2-4 weeks for re-evaluation of fluid collections and the need for surgical referral. Discussed with Dr. 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, ETOH cessation, hypertensive BP readings inpatient Home Meds and New Rx's Prescriptions: New levofloxacin 750 mg tablet 750 mg PO DAILY Qty: 8 0RF metronidazole 500 mg tablet 500 mg PO Q8H Qty: 24 0RF prochlorperazine maleate [Compazine] 5 mg tablet 5 mg PO TID PRNQty: 15 0RF Rx Instructions: Nausea pantoprazole [Protonix] 40 mg tablet,delayed release (DR/EC) 40 mg PO DAILY Qty: 7 0RF calcium carbonate [Tums] 200 mg calcium (500 mg) tablet,chewable 200 mg PO BID Qty: 10 0RF Continued ketoconazole 2 % shampoo 1 applic topical ONCE Changed Ibuprofen [Ibuprofen Ib] 200 MG tablet 400 mg PO Q6H PRNQty: 0 0RF Discharge Instructions Instructions: Acute pancreatitis, Alcohol Use Disorder (DC) Stand Alone Forms: Portal Information Referrals: Mc Araujo [Primary Care Provider, Medicine] Referral Note: Follow-up within 7 days of discharge Activity:: Activity as Tolerated Equipment/Supplies:: No Equipment Needed Diet:: Low fat, no alcohol DS: Summary Time Spent with Patient providing and/or coordinating discharge services: Greater than 30 minutes Status at Discharge Functional status at discharge: independent ambulation Overall status at discharge: patient is progressing back to baseline Mental Status: mental status grossly normal Speech and Movement: speech and movement normal Mood: congruent mood Affect: normal affect Exam Narrative Exam Narrative: 40 yo male patient - no acute distress , alert and oriented X4, no neurological deficit, S1, S2 regular, no murmur, clear lungs,good airflow to lung bases, abd is non-distended soft and tender to palpation , negative Luis's - moves all 4 ext. Psych Mental Status: mental status grossly normal Speech and Movement: speech and movement normal Mood: congruent mood Affect: normal affect DS: Data Vitals/I&O Vitals and I&O: Vital Signs Temperature 38.1 C H 05/09/25 07:52 Temperature Source Tympanic 05/09/25 07:52 Pulse 87 05/09/25 07:09 Pulse Rhythm Regular 05/06/25 20:13 Respiratory Rate 16 05/09/25 07:09 Respiratory Effort Normal 05/06/25 20:13 Respiratory Depth Normal 05/06/25 20:13 Blood Pressure 141/82 H 05/09/25 07:09 Blood Pressure Mean 101 05/09/25 07:09 Pulse Oximetry 96 05/09/25 07:09 Oxygen Delivery Method Room Air 05/09/25 07:09 Oxygen Flow Rate 0 05/09/25 07:09 Pain Level 0 05/09/25 07:09 Comment pt. has temp nurse notified. 05/08/25 23:23 Intake & Output 05/08/25 05/08/25 05/09/25 11:59 23:59 11:59 Intake Total 3129.166 / 4719.166 1590 / 4719.166 1100 / 1100 Output Total 300 / 300 Balance 3129.166 / 4419.166 1290 / 4419.166 1100 / 1100 Weight 87.7 kg 88.6 kg Intake: IV 3129.166 / 4479.166 1350 / 4479.166 1100 / 1100 Oral 240 / 240 Output: Urine 300 / 300 Other: Urine Color Yellow Light Mercedes Urine Appearance Clear Clear Urine Odor Normal Normal Comment Pt reports he voided in the toilet, unable to measure at this time. Stool Size Moderate Stool Characteristics Soft Formed Data Completed and Pending Pending Labs at Discharge: 05/06/25 05/07/25 05/07/25 22:45 06:00 10:08 WBC 12.86 H RBC 4.77 Hgb 15.6 Hct 45.5 MCV 95 D MCH 32.7 MCHC 34.3 RDW 12.4 Plt Count 222 MPV 10.4 VBG Lactate Sodium 141 Potassium 4.2 Chloride 108 H Carbon Dioxide 28.5 Anion Gap 4.5 BUN 12 Creatinine 1.02 Est GFR (CKD-EPI 2020) 80.83 Glucose 133 H Uric Acid Calcium 8.4 Magnesium 1.8 Total Bilirubin 1.30 H Conjugated Bilirubin AST 18 ALT 16 Alkaline Phosphatase 67 C-Reactive Protein 8.33 H Total Protein 6.3 Albumin 3.8 Triglycerides Total Cholesterol LDL Cholesterol, Calc HDL Cholesterol Lipase 642 H Procalcitonin COVID-19 Source Nasopharynx SARS-CoV-2 (PCR) Negative Influenza Type A (PCR) Negative Influenza Type B (PCR) Negative RSV (PCR) Negative Add-On Test Request DONE 05/08/25 05/08/25 05/09/25 04:37 15:37 06:16 WBC 13.23 H 8.62 RBC 4.17 L 3.65 L Hgb 13.1 L D 11.5 L Hct 39.0 L 33.6 L MCV 94 92 MCH 31.4 31.5 MCHC 33.6 34.2 RDW 12.4 11.9 Plt Count 178 138 MPV 10.2 10.4 VBG Lactate 0.8 Sodium 136 141 Potassium 3.7 3.5 Chloride 108 H 108 H Carbon Dioxide 24.0 22.5 Anion Gap 4 10.5 BUN 12 10 Creatinine 0.93 0.93 Est GFR (CKD-EPI 2020) 89.92 89.92 Glucose 134 H 98 Uric Acid 6.9 Calcium 8.0 L 7.7 L Magnesium 1.7 1.9 Total Bilirubin 3.20 H 1.50 H Conjugated Bilirubin 0.7 H AST 31 16 ALT 21 16 Alkaline Phosphatase 81 66 C-Reactive Protein 27.11 H Total Protein 5.7 5.4 L Albumin 3.3 3.1 L Triglycerides 74 Total Cholesterol 103 LDL Cholesterol, Calc 52 HDL Cholesterol 36 L Lipase 119 H Procalcitonin 2.97 COVID-19 Source SARS-CoV-2 (PCR) Influenza Type A (PCR) Influenza Type B (PCR) RSV (PCR) Add-On Test Request DONE Preliminary micro results at discharge 05/08/25 04:37 Blood Blood Culture - Preliminary NO GROWTH 24 HOURS 05/08/25 04:44 Blood Blood Culture - Preliminary NO GROWTH 24 HOURS 05/07/25 12:24 Blood Blood Culture - Preliminary NO GROWTH 24 HOURS 05/07/25 11:27 Blood Blood Culture - Preliminary NO GROWTH 24 HOURS PFSH All Active Problems (Updated 05/08/25 @ 11:17 by Lorrie Karimi APRN) Fever (Acute) Sepsis (Acute) Leukocytosis (Acute) Avascular necrosis of bone of hip (Chronic) HTN (hypertension) (Acute) Cholelithiasis (Chronic) Daily consumption of alcohol (Chronic) Necrotizing pancreatitis (Acute) Pancreatitis, acute (Acute) Chest pain (Acute) Ventura's cyst of knee (Acute) Left knee pain (Acute) Elevated LFTs (Acute) Inflammatory arthritis (Acute) Pityriasis versicolor (Acute) Onychomycosis (Acute) Back pain (Acute) Sore throat (Acute) Influenza A (Acute) Acute sinusitis (Acute) Gout (Chronic) Abnormal transaminases (Acute) Social History Smoking/Tobacco Use Status: Never Smoking risk assessment performed?: Yes Alcohol Intake: current Alcohol Intake frequency: 0-2 drinks per day Drug use: Never Housing: house Do you feel safe at home: Yes Do you feel safe in your relationship?: Yes Time Spent with Patient Time Spent with Patient: >85 minutes Time was spent: preparing to see the patient(eg.review tests), obtaining and/or reviewing separately otained hiistory, ordering medications,tests, procedures, referring, communicating with other health health care specialist, indepentently interpreting results, counseling the patient, care coordination and other
[2025-05-09] MEDS: CALCIUM GLUCONATE in NaCl 1 GM/50 ML BAG IVPB (13:05)
[2025-05-09] MEDS: Calcium Carbonate *TUMS* 500 MG CHEW PO (14:22)
[2025-05-09 14:28] LABS: Lab Add On Test DONE
[2025-05-09 15:22] LABS: C-Reactive Protein 29.68 mg/dL (<=0.50)
--- NOTE | 2025-05-09 17:52 | PDOC.CMDIS ---
Date of service: 05/09/25 Time of Service: 17:52 LACE Index Scoring Tool Questions: Length of Stay (in days): 3 Was the patient admitted via the E.D.?: Yes Comorbidities: Liver or Renal Disease E.D. Visits: 1 Answers: Total Score: 12 Risk of Readmission: High Risk Care Management Discharge Plan Reason for Hospitalization: pancreatitis Discharge Plan: Cesar will discharge home with no new services. He will follow up with his PCP and continue per his plan of care. Cesar will transport home in a private vehicle with family. CM offered to contact a Computer Numerical Control Machinist but Cesar did not feel he needed one. CM did provide contact information for [facility] anyway in case he changed his mind. Patient/Family Education Needs: Review discharge instructions, limitations, follow up plan, [facility]ICK resources available and discuss Ask Me Three
== END 2025-05-09 14:28 | disposition home or self-care (01) | DRG 871 ==
PROVIDERS: Family Medicine; Admitting Provider Family Medicine; PCP Physician Assistant; Responsible Provider Nurse Practitioner Acute Care; Visit Provider Family Medicine
DX: A41.9 Sepsis, unspecified organism (principal); K85.91 Acute pancreatitis with uninfected necrosis, unspecified; M87.851 Other osteonecrosis, right femur; R07.89 Other chest pain; K80.20 Calculus of gallbladder without cholecystitis without obstruction; D72.829 Elevated white blood cell count, unspecified; I15.8 Other secondary hypertension; M13.89 Other specified arthritis, multiple sites; U09.9 Post COVID-19 condition, unspecified; R10.11 Right upper quadrant pain
CPT/HCPCS: 00123; 36415; 80053; 80061; 83690; 84145; 85027; 87040; 87637; J1650; 82248; 83605; 83735; 84550; 86140; 99223; 99233; 99239; J0131; J0613; J1171; J2270; J2470; J2543

== ENCOUNTER → 2025-05-28 00:09 | Outpatient (CLI) | payer SELFPAY ==
--- NOTE | 2025-05-28 | DI.CT_ITS ---
Exam(s) CT ABDOMEN PELVIS W EXAM: CT ABDOMEN PELVIS W CLINICAL HISTORY: PANCREATITIS K85.90 W/O NECROSIS, FU RECENT PANCREATITIS. TECHNIQUE: Imaging Protocol: Axial computed tomography images with coronal and sagittal reformatted images were created and reviewed CONTRAST MATERIAL: Intravenous: Omnipaque 350 Contrast volume:100 ml Oral: yes 900 mL Readi-Cat COMPARISON: CT CT ABDOMEN AND PELVIS W CONTRAST (STANDARD) from 05/06/2025 FINDINGS: ABDOMEN and PELVIS: Lung Bases: No acute findings. Liver: Normal density. No suspicious mass. Gallbladder and biliary tract: Somewhat contracted. No radiodense calculus. No wall thickening or pericholecystic fluid. No biliary dilation. Pancreas: There is enlargement of the tail the pancreas with a fluid collection measuring 3.7 by 1.8 by 3 cm. There is no evidence of hemorrhage. There is small amount of surrounding fluid which has decreased when compared with the previous exam. No evidence of mass. Spleen: Normal. Kidneys: Normal size, contour and axis. No radiodense stones. No obstructive uropathy. No suspicious masses seen. Adrenal glands: No masses seen. Vasculature: Abdominal aorta non-dilated. The portal and splenic veins are patent. Soft tissues: Unremarkable. Bladder: nearly empty. No calculi.No focal mass. Bowel: No obstruction. No bowel wall thickening. Appendix normal. Peritoneal cavity: No ascites. No focal collection. No mesenteric inflammatory response. No free air. Bones: Unremarkable for age. Reproductive organs: Unremarkable. Lymph nodes: No pathologically enlarged lymph nodes. IMPRESSION:: Decreased amount of inflammation involving the tail of the pancreas. 3.7 cm localized fluid collection at the tail consistent with developing pseudocyst. RADIATION DOSE DELIVERED: 411.8mGy.cm Total DLP DATA REPOSITORY: All CT scans at this facility are submitted to the National Radiology Data Registry (NRDR) Dose Index Registry (DIR) with the [employer] (A[employer]). RADIATION OPTIMIZATION: All CT scans at this facility use at least one of these dose optimization techniques: automated exposure control; mA and/or kV adjustment per patient size (includes targeted exams where dose is matched to clinical indication); or iterative reconstruction.
[2025-05-28] MEDS: Barium Sulfate 2% W/V-Berry Smoothie 450 ML BTL PO (13:01)
[2025-05-28] MEDS: Barium Sulfate 2% W/V-Creamy Vanilla Smoothie 450 ML BTL PO (13:02)
[2025-05-28] MEDS: Normal Saline - Diluent 50 ML VIAL IJ (15:17)
[2025-05-28] MEDS: Normal Saline Flush 10 ML SYR IVP (15:17)
[2025-05-28] MEDS: Omnipaque 350 MG/ML 100 ML BTL IJ (15:17)
== END ==
LOC: DI 00:09
PROVIDERS: PCP Physician Assistant; Visit Provider Physician Assistant
DX: K85.90 Acute pancreatitis without necrosis or infection, unspecified (principal)
CPT/HCPCS: 74177; J3490